=== PATIENT | female | born 1965 | race Caucasian/White ===

== ENCOUNTER 2023-07-29 09:37 | Outpatient (OUT) | payer SELFPAY ==
--- NOTE | 2023-07-29 09:51 | MR_ITS ---
[address] [address] Patient Name: JODI LOBATO MRN: [facility]:[id number] date: 1965 Sex: F Assigned Patient Location: MRI Current Patient Location: MRI Accession/Order Number: [id number] Exam Date: 07/29/2023 10:00 Report Date: 07/29/2023 21:06 At the request of: JASS HALL Procedure: MR cervical spine wo con EXAM: MR cervical spine wo con. HISTORY: Left arm weakness R29.898. Left leg parenthesis R20.2. COMPARISON: None. TECHNIQUE: Multiplanar, multisequence MR imaging of the cervical spine was performed without intravenous contrast. FINDINGS: Cervical spine is in anatomic alignment with preservation of vertebral body heights and disc spaces. Bone marrow signal is within normal limits with no acute fracture or dislocation. Partially visualized intracranial contents are unremarkable. Cervical spinal cord is unremarkable in course, caliber, contour and signal. No prevertebral edema. No paraspinal mass or fluid collection. No stenosis at the foramen magnum or C1/C2 level C2/C3: Negative. C3/C4: Negative. C4/C5: Negative. C5/C6: Disc space narrowing with small posterior disc-osteophyte complex causing mild effacement of the ventral thecal sac and mild bilateral neural foraminal stenosis C6/C7: Disc space narrowing with small posterior disc-osteophyte complex and uncovertebral arthropathy causing slight effacement of the ventral thecal sac and mild bilateral neural foraminal stenosis C7/T1: Facet arthropathy. Evaluation is mildly limited due to motion and artifact. MR/MR cervical spine wo con IMPRESSION: 1. Mild effacement of ventral thecal sac at C5/C6 and C6/C7 due to small posterior disc-osteophyte complexes. No significant central canal stenosis or cord signal abnormality. 2. Mild bilateral neural foraminal stenosis at C5/C6 and C6/C7 due to disc space narrowing, uncovertebral arthropathy and facet arthropathy. 3. No acute osseous abnormality. Electronically authenticated by: FORTINO SOARES Date: 07/29/2023 21:06
--- NOTE | 2023-07-29 09:51 | MR_ITS ---
The [address] [address] Patient Name: JODI LOBATO MRN: [facility]:[id number] date: 1965 Sex: F Assigned Patient Location: MRI Current Patient Location: MRI Accession/Order Number: [id number] Exam Date: 07/29/2023 10:00 Report Date: 07/29/2023 11:25 At the request of: JASS HALL Procedure: MR head/brain wo con EXAM: MR head/brain wo con CLINICAL INDICATION: Left Arm Weakness R29.898, Left Leg Parenthesis R20.2 COMPARISON: None TECHNIQUE/PROTOCOL: Standard noncontrast protocol brain MRI performed (Sagittal T1 with axial T1, T2, GRE, FLAIR, and diffusion-weighted imaging). FINDINGS: No restricted diffusion, extra-axial fluid collection, hydrocephalus, midline shift, or other mass effect. Intracranial flow voids are maintained. Multiple scattered small hyperintense T2/FLAIR periventricular and subcortical foci are likely on the basis of chronic microvascular angiopathic changes. Mild symmetric global volume loss with slight bilateral frontal lobe predominance. Slight commensurate ventricular system caliber prominence. Normal marrow signal. No soft tissue abnormalities. Mild scattered paranasal sinus mucosal thickening. Mastoid air cells are well-aerated. MR/MR head/brain wo con IMPRESSION: No acute intracranial process or recent infarction. Electronically authenticated by: STEPHEN TYLER Date: 07/29/2023 11:25
== END 2023-07-29 09:38 | disposition home or self-care (01) ==
LOC: MRI 09:39
PROVIDERS: PCP Family Medicine; Visit Provider Family Medicine
DX: R29.898 Other symptoms and signs involving the musculoskeletal system (principal); R20.2 Paresthesia of skin; M48.02 Spinal stenosis, cervical region
CPT/HCPCS: 70551; 72141

== ENCOUNTER 2023-08-10 12:31 | Outpatient (OUT) | payer SELFPAY ==
--- NOTE | 2023-08-10 15:30 | P.CN_ITS ---
Consult Note: HPI Data of Consult Patient: new to practice Consult date: 08/10/23 Requesting Physician: Juan Last MD Primary Care Provider: Amilcar Greenfield MD Consult Narrative Reason for consult: neck and left arm pain and weakness Narrative: 57yof who presents for evaluation. worsening pain, numbness and tingling, weakness from neck into left arm. has undergone various conservative measures, including provider directed home exercise course, decompression, stretching. cervical mri shows disc bulge with osteophyte complex with resulting effacement of thecal sac at c5-6 and c6-7. utilizes OTC meds as needed. denies adverse med side effects. cc:: CC: Juan Last MD Review of Systems ROS Status of ROS 10 or more systems reviewed and unremarkable except as noted in history and below Exam Narrative Exam Narrative: Psych-alert and oriented x 3.? Attentive and appropriate, constitutionally normal, displays normal mood and affect per situation.? There are no obvious deficits in memory, reasoning, or intellect.? Skin-no obvious rashes, bruising, or erythema noted to the patient's area of pain.? Extremities-upper extremities are warm with minimal edema and palpable pulses. Cervical- tenderness to palpation noted in the cervical spine and paraspinal musculature.? Pain is elicited with flexion, extension, and lateral rotation of the cervical spine.? Range of motion is diminished due to pain. Facet loading maneuvers are positive. Strength-unremarkable and within normal limits with the exception to the left biceps, triceps. Sensory-no notable sensory deficits in the bilateral upper extremities to touch or pinprick with the exception to decreased sensation to the left C5, 6, 7 dermatomal distribution.? Coordination remains intact.? Gait remains non-antalgic. Assessment and Plan Assessment and Plan (1) Cervical disc displacement: (2) Cervical radiculopathy: Plan 57yof who presents for evaluation. failed conservative measures, as noted. imaging reviewed, as noted. given symptoms and imaging, discussed that it would be reasonable to continue her current conservative measures and consider adding gabapentin 100mg tid. she would like to continue her conservative measures and will call if interested in starting gabapentin. we discussed that if symptoms were to worsen, could consider left C5-6, C6-7 tfesi under fluoroscopic mary ellen nce. she expressed understanding. she will follow up as needed.
== END 2023-08-10 12:32 | disposition home or self-care (01) ==
PROVIDERS: PCP Family Medicine; Visit Provider Anesthesiology
DX: M50.10 Cervical disc disorder with radiculopathy, unspecified cervical region (principal)
CPT/HCPCS: G0463

== ENCOUNTER 2023-12-16 16:35 | Outpatient (RCR) | payer SELFPAY | END 2023-12-17 13:55 | disposition home or self-care (01) | LOC: PT 16:35 | PROVIDERS: PCP Family Medicine; Visit Provider Anesthesiology | DX: M46.1 Sacroiliitis, not elsewhere classified (principal); M54.12 Radiculopathy, cervical region | CPT/HCPCS: 97161 ==

== ENCOUNTER 2024-08-15 13:25 | Outpatient (OUT) | payer SELFPAY ==
--- OUTSIDE RECORDS SUMMARY | 2024-08-15 13:45 | XMS_ITS | CCD ---
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 Name Role Phone Carl Stoddard Unavailable Unavailable Carl Stoddard Unavailable Unavailable JASS GREENFIELD Unavailable Unavailable Carl Stoddard Unavailable Unavailable Carl Stoddard Unavailable Unavailable JASS GREENFIELD Unavailable Unavailable Ahmet Nascimento Unavailable Jass Greenfield Primary Care Physician Mic Rai Attending Unavailable Mic Rai Attending Unavailable RAFAEL, DR REGAN Attending Unavailable RAFAEL, DR REGAN Admitting Unavailable RAFAEL, DR REGAN Consulting Unavailable NADERER, DR QUINCY Guerra Primary Care Unavailable RAFAEL, DR REGAN Attending Unavailable RAFAEL, DR REGAN Admitting Unavailable RAFAEL, DR REGAN Consulting Unavailable NADERER, DR QUINCY Guerra Primary Care Unavailable Zieber, DR Graff Consulting Unavailable RAFAEL, DR REGAN Primary Care Unavailable MISC, DR DONALDSON Attending Unavailable WEST, DR FORTINO Hinds Consulting Unavailable MISC, DR DONALDSON Admitting Unavailable MISC, DR DONALDSON Consulting Unavailable MARIANNE, DR KING Consulting Unavailable MARIANNE, DR KING Attending Unavailable NADEREKia, DR QUINCY Guerra Primary Care Unavailable MARIANNE, DR KING Admitting Unavailable Ziebangeli, DR Graff Consulting Unavailable MARIANNE, DR KING Consulting Unavailable MARIANNE, DR KING Attending Unavailable MARIANNE, DR KING Admitting Unavailable NADERER, DR QUINCY Guerra Primary Care Unavailable RAFAEL, DR REGAN Consulting Unavailable RAFAEL, DR REGAN Attending Unavailable RAFAEL, DR REGAN Admitting Unavailable MISC, DR DONALDSON Primary Care Unavailable RAFAEL, DR REGAN Attending Unavailable RAFAEL, DR REGAN Admitting Unavailable MISC, DR DONALDSON Primary Care Unavailable RAFAEL, DR REGAN Consulting Unavailable RAFAEL, DR REGAN Attending Unavailable HOY, DR REGAN Admitting Unavailable HOY, DR REGAN Consulting Unavailable [facility], DR DONALDSON Primary Care Unavailable HOY, DR REGAN Attending Unavailable HOY, DR REGAN Admitting Unavailable HOY, DR REGAN Primary Care Unavailable HOY, DR REGAN Consulting Unavailable NADERER, DR QUINCY Guerra Primary Care Unavailable NADERER, DR QUINCY Guerra Consulting Unavailable NADERER, DR QUINCY Guerra Attending Unavailable NADERER, DR QUINCY Guerra Referring Unavailable NADERER, DR QUINCY Guerra Admitting Unavailable HOY, DR REGAN Attending Unavailable HOY, DR REGAN Admitting Unavailable HOY, DR REGAN Consulting Unavailable NADERER, DR QUINCY Guerra Primary Care Unavailable MARILLA, DR FORTINO Hinds Consulting Unavailable NADERER, DR QUINCY Guerra Primary Care Unavailable NADERER, DR QUINCY Guerra Attending Unavailable NADERER, DR QUINCY Guerra Admitting Unavailable NADERER, DR QUINCY Guerra Consulting Unavailable HOY, DR REGAN Attending Unavailable HOY, DR REGAN Admitting Unavailable HOY, DR REGAN Consulting Unavailable NADERER, DR QUINCY Guerra Primary Care Unavailable [facility], DR Graff Consulting Unavailable Shala MORSE, Juan Chambers Attending Unavailable Allergies Allergy Classification Reported Allergen(s) Allergy Type Date of Onset Reaction(s) Facility (2 sources) Erythromycin; Translations: [erythromycin] Drug Allergy anaphylaxis, Dyspnea (finding) [facility] (2 sources) Contrast media; Translations: [Contrast Dye] Drug allergy Unknown (qualifier value) [facility] (2 sources) Erythromycin Base; Translations: [Erythromycin Base] Propensity to adverse reactions (disorder) 4 [facility] Repository Medications Current Medications Medication Drug Class(es) Dates Sig (Normalized) Sig (Original) brompheniramine maleate 0.4 mg/ml / dextromethorphan hydrobromide 2 mg/ml / pseudoephedrine hydrochloride 6 mg/ml oral solution (1 source) alpha-Adrenergic Agonist, Uncompetitive F-vmhhox-A-aspartat e Receptor Antagonist, Sigma-1 Agonist Start: 08-22-2019 Bromfed DM oral syrup 10 mL, Oral, QID for cold symptoms, 200 mL, Refill(s) 0, [facility] Start Date: 08/22/19 Status: Ordered thyroid (group home) 60 mg oral tablet (2 sources) Start: 08-22-2019 take 1 tablet by mouth once daily Braxton Thyroid 60 mg Tab 60 mg = 1 tab(s), Oral, Daily, # 30 tab(s), Refills(s) 0 Start Date: 08/22/19 Status: Ordered Braxton Thyroid A ctive Problems Active Problems Problem Classification Problem Date Documented Date Episodic/Chronic Abdominal pain (3 sources) Left lower quadrant pain; Translations: [Left lower quadrant pain] Onset: 06-04-2022 Episodic Asthma (3 sources) Mild intermittent asthma; Translations: [Mild intermittent asthma, uncomplicated] Onset: 06-03-2022 Resolved: 06-03-2022 Chronic Blindness and vision defects (4 sources) Low vision right eye category 1, low vision left eye category 1; Translations: [LOW VISN OD CAT 1 LW VISN OS CAT 1] Onset: 03-18-2022 Chronic Calculus of urinary tract (7 sources) History of calculus of kidney; Translations: [Personal history of urinary calculi] Onset: 06-04-2022 Episodic Chronic obstructive pulmonary disease and bronchiectasis (1 source) Bronchitis 06-04-2022 Episodic Essential hypertension (1 source) Hypertensive disorder 06-04-2022 Chronic Genitourinary symptoms and ill-defined conditions (9 sources) Blood in urine; Translations: [Hematuria, unspecified] Onset: 06-04-2022 Episodic Immunizations and screening for infectious disease (1 source) Encounter for screening for human papillomavirus (HPV); Translations: [ENC SCREENING HUMAN PAPILLOMAVIRUS] Onset: 08-30-2022 Episodic Menopausal disorders (4 sources) Postmenopausal bleeding; Translations: [POSTMENOPAUSAL BLEEDING] Onset: 07-15-2022 Chronic Mood disorders (2 sources) Bipolar disorder; Translations: [Depressive disorder] 06-04-2022 Chronic Nutritional deficiencies (1 source) Vitamin D deficiency, unspecified; Translations: [VITAMIN D DEFICIENCY UNSPECIFIED] Onset: 10-08-2021 Chronic Other diseases of bladder and urethra (1 source) Urethral stricture 06-04-2022 Episodic Other diseases of kidney and ureters (1 source) Acquired renal cyst without neoplastic change; Translations: [Cyst of kidney, acquired] Onset: 06-04-2022 Episodic Other diseases of kidney and ureters (1 source) Simple renal cyst 06-04-2022 Episodic Other nutritional; endocrine; and metabolic disorders (1 source) Other disorders of plasma-protein metabolism, not elsewhere classified; Translations: [OTHER D/O PLASMA-PROTEIN METAB NEC] Onset: 12-02-2021 Chronic Other screening for suspected conditions (not mental disorders or infectious disease) (9 sources) Encounter for screening for malignant neoplasm of cervix; Translations: [Other specified abnormal findings of blood chemistry] Onset: 11-28-2021 Episodic Thyroid disorders (1 source) Hypothyroidism, unspecified; Translations: [HYPOTHYROIDISM UNSPECIFIED] Onset: 12-02-2021 Chronic Thyroid disorders (1 source) Disorder of thyroid gland 08-22-2019 Episodic Unclassified (1 source) COUGH, UNSPECIFIED; Translations: [COUGH, UNSPECIFIED] Onset: 04-28-2022 Unclassified (3 sources) CONTACT W/AND (SUSP) EXPOS COVID-19; Translations: [CONTACT W/AND (SUSP) EXPOS COVID-19] Onset: 10-30-2021 Urinary tract infections (1 source) Chronic cystitis 06-04-2022 Chronic Viral infection (1 source) COVID-19; Translations: [COVID-19] Onset: 10-08-2021 Past or Other Problems Problem Classification Problem Date Documented Da te Episodic/Chronic Deficiency and other anemia (1 source) Anemia, unspecified; Translations: [ANEMIA UNSPECIFIED] Onset: 10-08-2021 Episodic Diabetes mellitus without complication (1 source) Other abnormal glucose; Translations: [OTHER ABNORMAL GLUCOSE] Onset: 10-08-2021 Episodic Malaise and fatigue (4 sources) Other fatigue; Translations: [OTHER FATIGUE] Onset: 11-27-2021 Episodic Other connective tissue disease (1 source) Myalgia, unspecified site; Translations: [MYALGIA UNSPECIFIED SITE] Onset: 11-28-2021 Episodic Other diseases of kidney and ureters (1 source) Cyst of kidney, acquired; Translations: [CYST OF KIDNEY ACQUIRED] Onset: 11-29-2021 Episodic Other lower respiratory disease (4 sources) Dyspnea, unspecified; Translations: [DYSPNEA UNSPECIFIED] Onset: 04-24-2022 Episodic Other non-traumatic joint disorders (1 source) Pain in unspecified joint; Translations: [PAIN IN UNSPECIFIED JOINT] Onset: 11-28-2021 Episodic Other upper respiratory infections (5 sources) Acute sinusitis, unspecified; Translations: [ACUTE SINUSITIS UNSPECIFIED] Onset: 09-30-2021 Episodic Unclassified (1 source) CONTACT W/AND (SUSP) EXPOS COVID-19; Translations: [CONTACT W/AND (SUSP) EXPOS COVID-19] Onset: 10-28-2021 Results Test Name Value Interpretation Reference Range Facility PAP ACOG PANEL 2: 30 to 65on 09-04-2022 . . Normal [facility] Comment on above: Result Comment: Perf ormed at: WB Performed By: #### A NAIFA #### [facility] [address] [address] [address] Philip Olivia Age Gdln ACOG Testing 30-65 Normal [facility] Comment on above: Performed By: #### A NAIFA #### [facility] [address] [address] [address] Philip Olivia DIAGNOSIS: Comment Normal [facility] Comment on above: Result Comment: NEGA TIVE FOR INTRAEPITHELIAL LESION OR MALIGNANCY. Performed at: WB Performed By: #### A NAIFA #### [facility] [address] [address] [address] Philip Olivia HPV Aptima Negative Normal Negative [facility] Comment on above: Result Comment: This nucleic acid amplification test detects fourteen high-risk HPV types (16,18,31,33,35,39,45,51,52,56,58,59,66,68) without differentiation. Performed at: =G Performed By: #### A NAIFA #### [facility] [address] [address] [address] Philip Olivia HPV Genotype Reflex Comment Normal [facility] Comment on above: Result Comment: Crit eria not met, HPV Genotype not performed. Performed at: WB Performed By: #### A NAIFA #### [facility] [address] [address] [address] Philip Olivia Methodology: Comment Normal [facility] Comment on above: Result Comment: This liquid based ThinPrep(R) pap test was screened with the use of an image guided system. Performed at: WB Performed By: #### A NAIFA #### [facility] [address] [address] [address] Philip Olivia Note: Comment Normal [facility] Comment on above: Result Comment: The Pap smear is a screening test designed to aid in the detection of premalignant and malignant conditions of the uterine cervix. It is not a diagnostic procedure and should not be used as the sole means of detecting cervical cancer. Both false-positive and false-negative reports do occur. . Performed at: WB Performed By: #### A NAIFA #### [facility] [id number] Philip Olivia Performed by: Comment Normal [facility] Comment on above: Result Comment: Davida Moore, Access Tech (ASCP) Performed at: WB Performed By: #### A NAIFA #### [facility] [address] [address] [address] Philip Olivia Specimen adequacy: Comment Normal [facility] Comment on above: Result Comment: Sati sfactory for evaluation. Endocervical and/or squamous metaplastic cells (endocervical component) are present. Performed at: WB Performed By: #### A NAIFA #### [facility] [address] [address] [address] Philip Olivia US PELVIS AND TRANSVAGon US PELVIS AND TRANSVAG EXAMINATION: US PELVIS AND TRANSVAG HISTORY: Postmenopausal bleeding COMPARISON: Ultrasound pelvis 02/25/2021 TECHNIQUE: Transabdominal and transvaginal sonographic examination. FINDINGS: UTERUS: Fluid within the cervical canal, 4 mm in thickness. Normal size, contour, and echotexture of the uterus. Uterus size: 9.4 x 3.4 x 5.0 cm ENDOMETRIUM: Normal homogeneous appearance. Endometrial thickness: 4 mm RIGHT OVARY: Not seen. LEFT OVARY: Not seen. CUL-DE-SAC: Unremarkable. No significant free fluid. BLADDER: Unremarkable. OTHER: None. IMPRESSION: 1. Small moderate free fluid within the cervical canal, likely blood products associated with patient's history. 2. No abnormal endometrial thickening, polyp, or mass to account for patient's symptoms. 3. Neither ovary could be identified. No appreciable abnormal adnexal findings. Electronically authenticated by: JUAN DAVID Tai: 2022-07-15 21:28 Normal [facility] RAD - MISCon 07-08-2022 RAD - MISC [id number] 1.00CD:127 Normal [facility] RAD - Ultrasound Reporton RAD - Ultrasound Report [id number] .00CD:127 Normal [facility] US KIDNEYSon 06-19-2022 US KIDNEYS EXAMINATION: US KIDNEYS HISTORY: H/O: urinary stone COMPARISON: No relevant comparison available. TECHNIQUE: Ultrasound examination was performed of the bladder. FINDINGS: Right Kidney: Normal in size, contour and cortical echotexture. Area of anechoic echogenicity in the lower pole measuring 2.5 x 2.6 x 3.2 cm, simple cyst. The cortex measures 1.3 cm. No solid cortical mass, hydronephrosis or obstructing nephrolithiasis Height: 4.9 cm Length: 11.4 cm Width: 5.7 cm Left Kidney: Normal in size, contour and cortical echotexture. The cortex measures 1.3 cm. No solid cortical mass, hydronephrosis or obstructing nephrolithiasis Height: 5.5 cm Length: 11.3 cm Width: 5.1 cm Moderately distended with a volume of 419 mL. No focal mass or wall thickening IMPRESSION: 3.2 cm right renal simple cyst No hydronephrosis or obstructing nephrolithiasis Electronically authenticated by: FORTINO FARNSWORTH Date: 2022-06-19 10:05 Normal [facility] XR KUB 1 VIEWon 06-19-2022 XR KUB 1 VIEW EXAMINATION: XR KUB 1 VIEW HISTORY: Blood in urine COMPARISON: No relevant comparison available. FINDINGS: KIDNEY/URETER - RIGHT: No visible renal or ureteral calcifications. KIDNEY/URETER - LEFT: No visible renal or ureteral calcifications. PELVIS: No visible ureteral calcifications. Any visible calcifications favor phleboliths. BOWEL: No abnormal dilation or deviation. BONES: Dextrocurvature with degenerative changes OTHER: Negative. No abnormal gaseous collections. IMPRESSION: No definite urinary tract calculi Electronically authenticated by: FORTINO FARNSWORTH Date: 2022-06-19 10:19 Normal [facility] UroVysion Fish and Urine Cyt o ([facility])on 06-16-2022 UVFISH & UC Diagnosis Info Invalid Interpretation Code [facility] Comment on above: Result Comment: A:Ur ine,Urine:Voided Diagnosis Summary - Diagnosis Summary - The UroVysion FISH study detected normal copy numbers for chromosomes 3, 7, 17, and 9p21. 75 cells were analyzed in this evaluation. No evidence of aneuploidy for chromosomes 3, 7, or 17 or deletion of the 9p21 locus was found in cells present in this specimen. This test does not rule out the possibility of a low grade non-invasive papillary urothelial carcinoma. These findings should be correlated with cytology and cystoscopy results.* Microscopic Notes - Microscopic Notes - Abnormal cells 9p21 deletions: Abnormal cells aneploid events: Total cells analyzed: 75 Hematuria: Gross Description Site ID:A color Yellow fixative Alcohol Received 100 mls of clear yellow fluid with the patient's name and, Urine on the vial. Electronically signed by : on: 06/16/2022 15:04:31 Performed By: #### 1 [id number] #### [facility] [address] [place] [address] Formson 06-05-2022 Forms [id number] .00CD:127 Normal [facility] Historical Records Officeon 06-05-2022 Historical Records Office [id number]# 1.00CD:127 Normal [facility] Ambulatory Visit Summaryon 0 06-04-2022 Ambulatory Visit Summary GINNY CEJA :1965 Visit Date:06/04/2022 Ambulatory Visit Instructions Your Diagnosis History of UTI History of kidney stones Hematuria History of urethral stricture Left lower quadrant abdominal pain Tests Performed Urnls Dip Stick Auto w/o Microscopy POC [id number] US Renal -- Results Pending -- XR Abdomen 1 View -- Results Pending -- Please visit your patient portal for your results or contact your primary care physician. Your Care Team Attending Physician - Mic Cheema Primary Care Physician - Hoy MD, Jass This Is Your Medications List brompheniramine/dextr omethorphan/PSE (Bromfed DM oral syrup) thyroid desiccated (Tatums Thyroid 60 mg Tab) Procedures Performed Cystourethroscopy with dilation of urethral stricture (08/30/2012), Cystourethroscopy with dilation of urethral stricture (12/21/2009), section. Discharge Vitals Heart Rate (Peripheral) 87 Blood Pressure 125/90 Height 165 cm Height 165.0 cm Weight 102.2 kg Weight 102.2 kg BMI 37.54 What to do next Scheduled Follow-Up Appointments Thursday 9:00 AM EST With: Cecelia GASTELUM, Mic Guerra Where: [facility] UroVysion Fish and Urine Cyt o ([facility])on 06-04-2022 [facility] Method of Extraction Voided Normal [facility] Comment on above: Performed By: #### 1 [id number] #### [facility] [address] [place] [address] [facility] Number of Jars 1 Invalid Interpretation Code [facility] Comment on above: Performed By: #### 1 [id number] #### [facility] [address] [place] [address] [facility] Specimen Urine Normal [facility] Comment on above: Performed By: #### 1 [id number] #### [facility] [address] [place] [address] [facility] Type of Service Technical Only Normal [facility] Comment on above: Performed By: #### 1 [id number] #### [facility] [address] [place] [address] Urology Office/Clinic Noteon 06-04-2022 Urology Office/Clinic Note Chief Complaint New Pt. HPI Staff New Pt. Pt is here due to recent LLQ pain. Pt was last seen in our office on 12/10/12 per DLS. Previous DX: chronic cystitis. Pt states she drinks a lot of water. Pt gets up 2x a night. PVR today 113 ml. Dysuria: Denies Incomplete bladder emptying: denies Hematuria: Frequency: yes pt drinks a lot of water Urgency: denies Nocturia: denies Stream: denies Leaking: Post void dripping: denies Wearing pads/ Depends: denies Urge incontinence: denies Stress incontinence: Incontinence without Sensory Awareness: denies Abdominal pain: denies Flank pain: denies Sexual complaints: denies History of Present Illness Dysuria: _denies Incomplete bladder emptying: denies Hematuria: _not definitively; has intermittently noticed blood spots in underwear but can't say for sure if it's coming from bladder, vagina, rectum or external tissues Has never seen blood in the toilet, after she wipes (after urinating or having a BM), and hasn't seen blood in urinary stream while urinating. Frequency: _urinates every couple of hours Urgency: _denies Nocturia: _2x Stream: _strong, no split or spraying stream Leaking: _only if laughing really hard Post void dripping: _ Wearing pads/ Depends: _denies Urge incontinence: _denies Stress incontinence: _only if laughing really hard Incontinence without Sensory Awareness: _ Abdominal pain: _recently had LLQ pain but resolved Flank pain: _denies Sexual complaints: _ HPI: What brings Pt in today is LLQ quad pain (mild) within the last week and lasted 48 hours. Went away on it's own. Pt denies obvious cause/triggers. Denies fever, chills, N/V. Denies constipation. BMs daily. Denies diarrhea, blood in stool or black stool. No C-scope before. ColoGuard done 1 year ago and was fine. Review of Systems PHQ Score Initial Depression Screen Score: 0 See HPI. Physical Exam Vitals & Measurements HR: 87(Peripheral) BP: 125/90 HT: 165 cm HT: 165.0 cm WT: 102.2 kg WT: 102.2 kg BMI: 37.54 General Appearance: alert , no acute distress, well nourished, well developed female. Head: normocephalic . Eyes: normal orbit and globe. Chest: no conversational dyspnea, respirations non labored . Cardiovascular: no cyanosis Abdomen: soft, non distended, no tenderness, no mass or organomegaly, no hernia, obese Female genitalia normally formed, moist, no lesions, no mass, no rash. Mucosal surface of labia are red but nothing major and Pt denies TTP. Whitish vaginal D/C. No apparent odor. Rectocele noted and stool felt in rectum. Able to self-identify pelvic floor muscles. Maybe some mild urethral mobility and bladder descent but nothing significant. Genitourinary: bladder nonpalpable, no flank tenderness. Lymph Nodes: no inguinal adenopathy Skin: warm, dry, no bruising. Psychiatric: cooperative, affect appropriate for age, normal judgement, euthymic mood. Assessment/Plan Last seen here 12/10/[address] Dumont. Prior diagnoses: chronic cystitis, nephrolithiasis, urethral stricture, UTIs. 1. Left lower quadrant abdominal pain (R10.32: Left lower quadrant pain) Had recently x 48 hours, but now resolved. Was mild. Resolved on own. Denies obvious triggers. This is the reason that Pt came in today. She will be going out of town soon. She just wanted to get checked out. May or may not be related to stone(s). Pt comments that in the past month she has been doing intermittent fasting to lose weight and she considered that this may have contributed. Denies constipation, diarrhea, N/V, blood in stool, black stool. Ordered: E&M of New Patient Moderate 45-59 Min [id number] US Renal XR Abdomen 1 View 2. Hematuria (R31.9: Hematuria, unspecified) Possible hematuria. A couple of years ago started w/ getting spots of blood in her underwear. [employer] provider seen at that time and D & C done due to uterine thickening and was OK. No definitive blood in urine, just spotting in underwear (size of pencil eraser) that occurred x 6 months and last occurred a couple months ago and at that time lasted a couple days. Never sees blood w/ wiping after urinating or having BMs and has never seen blood in the toilet or blood in urinary stream. Denies genital dryness and irritation. Went through menopause 17 years ago. UA today neg for blood. Discussed possible causes of blood in urine: UTI, stones, bladder tumor, renal tumor, external genital irritation. Denies family Hx of bladder CA. Denies Hx of smoking. 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 Work-up for hematuria discussed: CTU, Cysto, cytology/FISH. Reasoning for all these tests discussed. Pt just had a lung CT and doesn't want to undergo CT at this time. Since Hx of stones and blood could be related to stones will get KUB and renal US and go from there. Pt would like to hold off on Cysto for now. Pt does agree to have urine sent today for FISH/cytology. Advised our office would call w/ (more content not included)... Normal [facility] Comment on above: Result Comment: Elec tronically Signed By: Mic Cheema\ashlie\Date and Time Signed: 06/04/22 21:[address] CHEST WO CONon 04-25-2022 CT CHEST WO CON EXAMINATION: CT CHES T WO CON HISTORY: Dyspnea , chronic cough COMPARISON: No relevant comparison available. TECHNIQUE: Axial, Coronal, and Sagittal images were created without the administration of IV contrast material. Dose reduction techniques were achieved by using automated exposure control and/or adjustment of mA and/or kV according to patient size and/or use of iterative reconstruction technique. FINDINGS: LUNGS: No visible pulmonary disease. PLEURA: No mass, effusion, or pneumothorax. VASCULATURE: No abnormality. BOB: No mass or adenopathy. MEDIASTINUM: No mass or adenopathy. CARDIAC: No enlargement or pericardial thickening. AORTA: No aneurysm or dissection. CHEST WALL: No mass or axillary adenopathy. BONES: No bone lesion or fracture. LIMITED ABDOMEN: No suspicious findings. Limited images of the upper abdomen. OTHER: Negative. IMPRESSION: 1. No abnormal or suspicious findings to account for patient's symptoms. Electronically authenticated by: JUAN DAVID ESCALANTE Date: 2022-04-25 07:20 Normal [facility] HEMOGLOBINon 04-18-2022 Hemoglobin (Bld) [Mass/Vol] 14.4 g/dL Normal 12.0-16.0 [facility] Comment on above: Performed By: #### H GB #### [facility] [address] [address] [address] Philip Olivia US CAROTID ART BILon 022 US CAROTID ART MAIKEL EXAMINATION: US CAROTID ART MAIKEL HISTORY: Low vision bilaterally , visual disturbances COMPARISON: No relevant comparison available. TECHNIQUE: Duplex Doppler ultrasound analysis of carotid and vertebral arteries. . Bilateral carotid arterial duplex examination was performed using B-mode, color flow and spectral analysis. Carotid stenosis is reported according to validated velocity parameters, similar to NASCET criteria. FINDINGS: RIGHT CAROTID ARTERY: No visible stenosis or significant plaque. RIGHT VERTEBRAL: Antegrade flow. Subclavian: PSV: 125.8 cm/s EDV: 0.0 cm/s CCA: Prox: PSV: 75.7 cm/s EDV: 16.0 cm/s Mid: PSV: 62.0 cm/s EDV: 14.1 cm/s Distal: PSV: 64.7 cm/s EDV: 27.4 cm/s BULB: PSV: 33.4 cm/s EDV: 12.0 cm/s ICA: Prox: PSV: 57.5 cm/s EDV: 19.1 cm/s Mid: PSV: 69.8 cm/s EDV: 29.6 cm/s Distal: PSV: 78.8 cm/s EDV: 33.5 cm/s ECA: PSV: 86.6 cm/s EDV: 19.3 cm/s VERTEBRAL: PSV: 41.8 cm/s EDV: 18.2 cm/s ICA/CCA ratio: PSV: 1.0 EDV: 2.1 LEFT CAROTID ARTERY: No visible stenosis or significant plaque. LEFT VERTEBRAL: Antegrade flow. Subclavian: PSV: 138.3 cm/s EDV: 0.0 cm/s CCA: Prox: PSV: 68.8 cm/s EDV: 20.3 cm/s Mid: PSV: 76.8 cm/s EDV: 22.0 cm/s Distal: PSV: 60.7 cm/s EDV: 25.2 cm/s BULB: PSV: 52.3 cm/s EDV: 18.2 cm/s ICA: Prox: PSV: 48.2 cm/s EDV: 19.7 cm/s Mid: PSV: 57.0 cm/s EDV: 25.2 cm/s Distal: PSV: 75.3 cm/s EDV: 33.3 cm/s ECA: PSV: 78.5 cm/s EDV: 13.9 cm/s VERTEBRAL: PSV: 47.9 cm/s EDV: 19.3 cm/s ICA/CCA ratio: PSV: 1.0 EDV: 1.5 IMPRESSION: 1. 0-49% flow stenosis within the right left carotid arteries. 2. No significant atherosclerotic plaque. Spectral Doppler US Thresholds Stenosis (%) PSV (cm/sec) VICA/VCCA 0-49 <150 <2.5 50-69 150-225 2.5-4.0 >70 >225 >4.0 Electronically authenticated by: JUAN DAVID ESCALANTE Date: 2022-03-18 16:17 Normal [facility] IMMUNOGLOBULIN E, TOTALon Immunoglobulin E, Total 149 IU/mL Normal 6-495 [facility] Comment on above: Performed By: #### A NAIFA #### [facility] [address] [place] [address] Dr. Philip Olivia PROTEIN ELECTROPHERESISon Albumin [Mass/Vol] 3.7 g/dL Normal 2.9-4.4 [facility] Comment on above: Performed By: #### A NAIFA #### [facility] [address] [place] [address] Dr. Philip Olivia Albumin/Globulin [Mass ratio] 0.9 {ratio} Normal 0.7-1.7 [facility] Comment on above: Performed By: #### A NAIFA #### [facility] [address] [place] [address] Dr. Philip Olivia Wscth-2-Zlahfkiz 0.2 g/dL Normal 0.0-0.4 [facility] Comment on above: Performed By: #### A NAIFA #### [facility] [address] [address] [address] Philip Olivia Yersa-7-Wyzjlsoq 1.0 g/dL Normal 0.4-1.0 [facility] Comment on above: Performed By: #### A NAIFA #### [facility] [address] [address] [address] Philip Olivia Beta Globulin 1.4 g/dL Critically high 0.7-1.3 [facility] Comment on above: Performed By: #### A NAIFA #### [facility] [address] [place] [address] Dr. Philip Olivia Gamma Globulin 1.3 g/dL Normal 0.4-1.8 [facility] Comment on above: Performed By: #### A NAIFA #### [facility] [address] [place] [address] Dr. Philip Olivia Globulin (S) [Mass/Vol] 3.9 g/dL Normal 2.2-3.9 [facility] Comment on above: Performed By: #### A NAIFA #### [facility] [address] [place] [address] Dr. Philip Olivia M-Fabrice Not Observed Normal Not Observed [facility] Comment on above: Performed By: #### A NAIFA #### [facility] [address] [place] [address] Dr. Philip Olivia PDF . Normal [facility] Comment on above: Performed By: #### A NAIFA #### [facility] [address] [place] [address] Dr. Philip Olivia Please note: Comment Normal [facility] Comment on above: Result Comment: Prot ein electrophoresis scan will follow via computer, mail, or surgical instrument mechanic delivery. Performed By: #### A NAIFA #### [facility] [address] [place] [address] Dr. Philip Olivia Protein [Mass/Vol] 7.6 g/dL Normal 6.0-8.5 [facility] Comment on above: Performed By: #### A NAIFA #### [facility] [address] [place] [address] Dr. Philip Olivia TOREY by IFAon 11-28-2021 Antinuclear Antibodies, IFA Negative Normal [facility] Comment on above: Result Comment: Nega tive <1:80 Borderline 1:80 Positive >1:80 ICAP nomenclature: AC-0 For more information about Hep-2 cell patterns use ANApatterns.org, the official website for the International Consensus on Antinuclear Antibody (TOREY) Patterns (ICAP). Performed By: #### A NAIFA #### [facility] [address] [place] [address] Dr. Philip Olivia ANTISTREPTOLYSIN O AB (ASO)o n 11-28-2021 Antistreptolysin O Ab 48.5 IU/mL Normal 0.0-200.0 [facility] Comment on above: Performed By: #### A SOAB #### [facility] [address] [place] [address] Dr. Philip Olivia IMMUNOGLOBULINS IGA/IGM/IGG QUANTITATIVEon 11-28-2021 Immunoglobulin A, Qn, Serum 368 mg/dL Critically high 87-352 [facility] Comment on above: Performed By: #### A SOAB #### [facility] [address] [place] [address] Dr. Philip Olivia Immunoglobulin G, Qn, Serum 1199 mg/dL Normal 586-1602 [facility] Comment on above: Performed By: #### A SOAB #### [facility] [address] [place] [address] Dr. Philip Olivia Immunoglobulin M, Qn, Serum 101 mg/dL Normal 26-217 [facility] Comment on above: Performed By: #### A SOAB #### [facility] [address] [place] [address] Dr. Philip Olivia RHEUMATOID FACTORon 11-28-19 RA Latex Turbid. 10.3 IU/mL Normal <14.0 The [facility] Comment on above: Performed By: #### R F #### [facility] [address] [place] [address] Dr. Philip Olivia US SINGLE QUAD RT UPPERon US SINGLE QUAD RT UPPER EXAMINATION: US SINGLE QUAD RT UPPER HISTORY: Blood chemistry abnormal COMPARISON: No relevant comparison available. FINDINGS: The visualized pancreas is normal in appearance. No focal mass. The liver is normal in size and contour. Diffuse increase in hepatic echotexture. No focal mass. The gallbladder is normal in size. The gallbladder wall measures 1.5 mm, normal. Negative sonographic Vigil sign. No cholelithiasis or pericholecystic fluid. The common bile duct measures 5.7 mm, normal. The right kidney is normal in appearance measuring 11.3 x 5.2 x 5.1 cm. No solid cortical mass or hydronephrosis. Area of anechoic echogenicity along the lower pole measuring 2.6 x 2.8 x 2.3 cm, simple cyst. IMPRESSION: Increased hepatic echotexture suggesting steatosis 2.8 cm right renal simple cyst Electronically authenticated by: FORTINO FARNSWORTH Date: 2021-11-28 10:42 Normal [facility] ALBUMINon 11-27-2021 Albumin [Mass/Vol] 3.9 g/dL Normal 3.5-5.0 [facility] Comment on above: Performed By: #### A SOAB #### [facility] [address] [place] [address] Dr. Philip Olivia ALKALINE PHOSPHAon ALP [Catalytic activity/Vol] 163 U/L Critically high 38-126 [facility] Comment on above: Performed By: #### A SOAB #### [facility] [address] [place] [address] Dr. Philip Olivia BILIRUBIN CONJUGATED (DIRECT )on 11-27-2021 BILI, CONJUGATED 0.1 mg/dL Normal 0.0-0.3 [facility] Comment on above: Performed By: #### C VDTBH #### [facility] [address] [place] [address] Dr. Philip Olivia BILIRUBIN TOTALon 11-27-2021 Bilirubin [Mass/Vol] 0.5 mg/dL Normal 0.2-1.3 [facility] Comment on above: Performed By: #### A LP, ALB, ALT, AST, TPROT, CRP, URIC, TBIL #### [facility] [address] [place] [address] Dr. Philip Olivia CBC AUTO DIFFon 11-27-2021 BASO # 0.1 103/ul Normal 0.0-0.1 [facility] Comment on above: Performed By: #### C BC #### [facility] [address] [place] [address] Dr. Philip Olivia Basophils/100 WBC (Bld) 0.7 % Normal 0.2-2.0 [facility] Comment on above: Performed By: #### C BC #### [facility] [address] [place] [address] Dr. Philip Olivia EO # 0.4 103/ul Normal 0.0-0.7 [facility] Comment on above: Performed By: #### C BC #### [facility] [address] [place] [address] Dr. Philip Olivia Eosinophils/100 WBC (Bld) 3.7 % Normal 0.9-7.0 [facility] Comment on above: Performed By: #### C BC #### [facility] [address] [place] [address] Dr. Philip Olivia Erythrocyte distribution width (RBC) [Ratio] 12.9 % Normal 11.0-15.0 [facility] Comment on above: Performed By: #### C BC #### [facility] [address] [place] [address] Dr. Philip Olivia Hematocrit (Bld) [Volume fraction] 47.3 % Normal 36.0-48.0 [facility] Comment on above: Performed By: #### C BC #### [facility] [address] [place] [address] Dr. Philip Olivia Hemoglobin (Bld) [Mass/Vol] 15.3 g/dL Normal 12.0-16.0 [facility] Comment on above: Performed By: #### C BC #### [facility] [address] [place] [address] Dr. Philip Olivia IG # 0.09 10e3/ul Critically high 0.00-0.03 [facility] Comment on above: Performed By: #### C BC #### [facility] [address] [place] [address] Dr. Philip Olivia IG % 0.9 % Critically high 0.0-0.5 [facility] Comment on above: Performed By: #### C BC #### [facility] [address] [place] [address] Dr. Philip Olivia LYMPH # 2.3 103/ul Normal 1.2-3.8 [facility] Comment on above: Performed By: #### C BC #### [facility] [address] [place] [address] Dr. Philip Olivia Lymphocytes/100 WBC (Bld) 23.8 % Normal 20.5-60.0 [facility] Comment on above: Performed By: #### C BC #### [facility] [address] [place] [address] Dr. Philip Olivia MANUAL DIFF REQ NO Normal [facility] Comment on above: Performed By: #### C BC #### [facility] [address] [place] [address] Dr. Philip Olivia MCH (RBC) [Entitic mass] 29.9 pg Normal 26.7-34.0 [facility] Comment on above: Performed By: #### C BC #### [facility] [address] [place] [address] Dr. Philip Olivia MCHC (RBC) [Mass/Vol] 32.3 g/dL Normal 29.9-35.2 [facility] Comment on above: Performed By: #### C BC #### [facility] [address] [place] [address] Dr. Philip Olivia MCV (RBC) [Entitic vol] 92.4 fL Normal 81.0-99.0 [facility] Comment on above: Performed By: #### C BC #### [facility] [address] [place] [address] Dr. Philip Olivia MONO # 0.6 103/ul Normal 0.3-0.8 [facility] Comment on above: Performed By: #### C BC #### [facility] [address] [place] [address] Dr. Philip Olivia Monocytes/100 WBC (Bld) 5.8 % Normal 1.7-12.0 [facility] Comment on above: Performed By: #### C BC #### [facility] [address] [place] [address] Dr. Philip Olivia NEUT # 6.4 103/ul Normal 1.4-6.5 [facility] Comment on above: Performed By: #### C BC #### [facility] [address] [place] [address] Dr. Philip Olivia Neutrophils/100 WBC (Bld) 65.1 % Normal 43.0-75.0 [facility] Comment on above: Performed By: #### C BC #### [facility] [address] [address] [address] Philip Olivia Platelet mean volume (Bld) [Entitic vol] 9.6 fL Normal 9.5-13.5 [facility] Comment on above: Performed By: #### C BC #### [facility] [address] [address] [address] Philip Olivia PLT 325 103/ul Normal 150-450 [facility] Comment on above: Performed By: #### C BC #### [facility] [address] [address] [address] Philip Olivia RBC 5.12 106/ul Normal 4.20-5.40 [facility] Comment on above: Performed By: #### C BC #### [facility] [address] [place] [address] Dr. Philip Olivia WBC 9.8 103/ul Normal 4.0-11.0 [facility] Comment on above: Performed By: #### C BC #### [facility] [address] [address] [address] Philip Olivia CRPon 11-27-2021 CRP 1.4 mg/dL Critically high <=1.0 [facility] Comment on above: Performed By: #### A SOAB #### [facility] [address] [place] [address] Dr. Philip Olivia FREE T3on 11-27-2021 FREE T3 3.91 pg/mlL Normal 2.77-5.27 [facility] Comment on above: Performed By: #### C VDTBH #### [facility] [address] [place] [address] Dr. Philip Olivia FREE T4on 11-27-2021 Free T4 [Mass/Vol] 0.94 ng/dL Normal 0.78-2.19 [facility] Comment on above: Performed By: #### A NAIFA #### [facility] [address] [place] [address] Dr. Philip Olivia LIVER PROFILEon 11-27-2021 Albumin [Mass/Vol] 3.8 g/dL Normal 3.5-5.0 [facility] Comment on above: Performed By: #### C VDTBH #### [facility] [address] [place] [address] Dr. Philip Olivia Albumin/Globulin [Mass ratio] 0.8 {ratio} Normal [facility] Comment on above: Performed By: #### C VDTBH #### [facility] [address] [place] [address] Dr. Philip Olivia ALP [Catalytic activity/Vol] 154 U/L Critically high 38-126 [facility] Comment on above: Performed By: #### C VDTBH #### [facility] [address] [place] [address] Dr. Philip Olivia ALT [Catalytic activity/Vol] 52 U/L Normal 9-52 [facility] Comment on above: Performed By: #### C VDTBH #### [facility] [address] [place] [address] Dr. Philip Olivia AST [Catalytic activity/Vol] 23 U/L Normal 14-36 [facility] Comment on above: Performed By: #### C VDTBH #### [facility] [address] [place] [address] Dr. Philip Olivia Bilirubin [Mass/Vol] 0.5 mg/dL Normal 0.2-1.3 [facility] Comment on above: Performed By: #### C VDTBH #### [facility] [address] [place] [address] Dr. Philip Olivia Globulin (S) [Mass/Vol] 4.6 g/dL Normal [facility] Comment on above: Performed By: #### C VDTBH #### [facility] [address] [place] [address] Dr. Philip Olivia Protein [Mass/Vol] 8.4 g/dL Critically high 6.1-8.2 [facility] Comment on above: Performed By: #### C VDTBH #### [facility] [address] [place] [address] Dr. Philip Olivia PROF CHEM 8 (BAS METB)on Anion gap [Moles/Vol] 13.9 mmol/L Normal [facility] Comment on above: Performed By: #### C VDTBH #### [facility] [address] [place] [address] Dr. Philip Olivia Calcium [Mass/Vol] 9.5 mg/dL Normal 8.4-10.2 [facility] Comment on above: Performed By: #### C VDTBH #### [facility] [address] [place] [address] Dr. Philip Olivia Chloride [Moles/Vol] 103 mmol/L Normal 98-107 [facility] Comment on above: Performed By: #### C VDTBH #### [facility] [address] [place] [address] Dr. Philip Olivia CO2 [Moles/Vol] 27.4 mmol/L Normal 22.0-30.0 [facility] Comment on above: Performed By: #### C VDTBH #### [facility] [address] [place] [address] Dr. Philip Olivia Creatinine [Mass/Vol] 0.84 mg/dL Normal 0.52-1.04 [facility] Comment on above: Performed By: #### C VDTBH #### [facility] [address] [place] [address] Dr. Philip Olivia EGFR-AF PALAUAN >60 Normal >=60 The [facility] Comment on above: Performed By: #### C VDTBH #### [facility] [address] [place] [address] Dr. Philip Olivia EGFR-NON AF PALAUAN >60 Normal >=60 [facility] Comment on above: Performed By: #### C VDTBH #### [facility] [address] [place] [address] Dr. Philip Olivia Glucose [Mass/Vol] 93 mg/dL Normal 74-106 [facility] Comment on above: Performed By: #### C VDTBH #### [facility] [address] [place] [address] Dr. Philip Olviia Potassium [Moles/Vol] 4.3 mmol/L Normal 3.4-5.0 [facility] Comment on above: Performed By: #### C VDTBH #### [facility] [address] [place] [address] Dr. Philip Olivia Sodium [Moles/Vol] 140 mmol/L Normal 137-145 [facility] Comment on above: Performed By: #### C VDTBH #### [facility] [address] [place] [address] Dr. Philip Olivia Urea nitrogen [Mass/Vol] 14.0 mg/dL Normal 7.0-17.0 [facility] Comment on above: Performed By: #### C VDTBH #### [facility] [address] [place] [address] Dr. Philip Olivia Urea nitrogen/Creatinine [Mass ratio] 16.7 mg/mg Normal [facility] Comment on above: Performed By: #### C VDTBH #### [facility] [address] [place] [address] Dr. Philip Olivia SGOTon 11-27-2021 AST [Catalytic activity/Vol] 25 U/L Normal 14-36 [facility] Comment on above: Performed By: #### A SOAB #### [facility] [address] [place] [address] Dr. [place] Olivia SGPTon 11-27-2021 ALT [Catalytic activity/Vol] 52 U/L Normal 9-52 [facility] Comment on above: Performed By: #### A SOAB #### [facility] [address] [place] [address] Dr. Philip Olivia T PROTEIN SERUMon 11-27-2021 Protein [Mass/Vol] 8.6 g/dL Critically high 6.1-8.2 [facility] Comment on above: Performed By: #### A SOAB #### [facility] [address] [place] [address] Dr. Philip Olivia TSHon 11-27-2021 TSH 0.595 uIU/mL Normal 0.470-4.680 [facility] Comment on above: Performed By: #### C VDTBH #### [facility] [address] [place] [address] Dr. Philip Olivia TSH RANGE SEE BELOW Normal [facility] Comment on above: Result Comment: <0.3 4 UIU/ml HYPERTHYROID 0.34-5.60 UIU/ml EUTHYROID >5.60 UIU/ml HYPOTHYROID Performed By: #### C VDTBH #### [facility] [address] [place] [address] Dr. Philip Olivia URIC ACID SERUMon 11-27-2021 Urate [Mass/Vol] 5.3 mg/dL Normal 2.5-6.2 The [facility] Comment on above: Performed By: #### A SOAB #### [facility] [address] [place] [address] Dr. Philip Olivia Covid-19 PCR ([facility])on 10-06 SARS-CoV-2 (COVID-19) RNA ANTHONY+probe Ql (Unsp spec) Not detected Normal NOT DETECTED [facility] Comment on above: Result Comment: This test is not yet approved or cleared by the [place] FDA. When there are no FDA-approved or cleared tests available, and other criteria are met, FDA can make tests available under an emergency access mechanism called an Emergency Use Authorization (EUA). The EUA for this test is supported by the Triage Specialist of Health and Human Service's (HHS's) declaration that circumstances exist to justify the emergency use of in vitro diagnostics for the detection and/or diagnosis of the virus that causes COVID-19. This EUA will remain in effect (meaning this test can be used) for the duration of the COVID-19 declaration justifying emergency of IVDs, unless it is terminated or revoked by FDA (after which the test may no longer be used). When diagnostic testing is negative, the possibility of a false negative should be considered in the context of a patient's recent exposures and the presence of clinical signs and symptoms consistent with SARS-CoV-2. Performed By: #### C VDTBH #### [facility] [address] [place] [address] Dr. Philip Olivia IMMUNOGLOBULINS IGA/IGM/IGG/ IGE QUANTITAon 10-03-2021 Immunoglobulin A, Qn, Serum 430 mg/dL Critically high 87-352 [facility] Comment on above: Result Comment: Perf ormed at: CB Performed By: #### A SOAB #### [facility] [address] [place] [address] Dr. Philip Olivia Immunoglobulin E, Total 218 IU/mL Normal 6-495 [facility] Comment on above: Result Comment: Perf ormed at: BN Performed By: #### A SOAB #### [facility] [address] [address] [address] Philip Olivia Immunoglobulin G, Qn, Serum 1284 mg/dL Normal 586-1602 [facility] Comment on above: Result Comment: Perf ormed at: CB Performed By: #### A SOAB #### [facility] [address] [place] [address] Dr. Philip Olivia Immunoglobulin M, Qn, Serum 117 mg/dL Normal 26-217 [facility] Comment on above: Result Comment: Perf ormed at: CB Performed By: #### A SOAB #### [facility] [address] [place] [address] Dr. Philip Olivia [facility]-05 SARS-CoV-2 (COVID-19) RNA ANTHONY+probe Ql (Unsp spec) Detected Critically abnormal NOT DETECTED [facility] Comment on above: Result Comment: This test is not yet approved or cleared by the [place] FDA. When there are no FDA-approved or cleared tests available, and other criteria are met, FDA can make tests available under an emergency access mechanism called an Emergency Use Authorization (EUA). The EUA for this test is supported by the [place] of Health and Human Service's (HHS's) declaration that circumstances exist to justify the emergency use of in vitro diagnostics for the detection and/or diagnosis of the virus that causes COVID-19. This EUA will remain in effect (meaning this test can be used) for the duration of the COVID-19 declaration justifying emergency of IVDs, unless it is terminated or revoked by FDA (after which the test may no longer be used). Performed By: #### C VDTBH #### [facility] [address] [place] [address] Dr. Philip Olivia VIT D 1 25 DIHYDROXYon 10-02 Calcitriol(1,25 di-OH Vit D) 44.8 pg/mL Normal 19.9-79.3 [facility] Comment on above: Performed By: #### A NAIFA #### [facility] [address] [place] [address] Dr. Philip Olivia FRANKIE-GRESHAM VIRUS (EBV) AB PROFILEon 10-01-2021 EBV Ab VCA, IgG 342.0 U/mL Critically high 0.0-17.9 [facility] Comment on above: Result Comment: Nega tive <18.0 Equivocal 18.0 - 21.9 Positive >21.9 Performed By: #### C VDTB #### [facility] [address] [place] [address] Dr. Philip Olivia EBV Ab VCA, IgM <36.0 Normal 0.0-35.9 [facility] Comment on above: Result Comment: Nega tive <36.0 Equivocal 36.0 - 43.9 Positive >43.9 Performed By: #### C VDTB #### [facility] [address] [place] [address] Dr. Philip Olivia EBV Nuclear Antigen Ab, IgG <18.0 Normal 0.0-17.9 [facility] Comment on above: Result Comment: Nega tive <18.0 Equivocal 18.0 - 21.9 Positive >21.9 Performed By: #### C VDTBH #### [facility] [address] [place] [address] Dr. Philip Olivia Interpretation: Comment Normal [facility] Comment on above: Result Comment: EBV Interpretation Chart [place]: Antibody Present + Antibody Absent - Interpretation VCA-IgM VCA-IgG EBNA-IgG . No previous infection/ - - - Susceptible Primary infection (new + + - or recent) Past Infection +or- + + See comment below* + - - *Results indicate infection with EBV at some time however cannot predict the timing of the infection since antibodies to EBNA usually develop after primary infection or, alternatively, approximately 5-10% of patients with EBV never develop antibodies to EBNA. Performed By: #### C VDTBH #### [facility] [address] [place] [address] Dr. Philip Olivia INSULINon 10-01-2021 Insulin 17.5 uIU/mL Normal 2.6-24.9 [facility] Comment on above: Performed By: #### C VDTBH #### [facility] [address] [place] [address] Dr. Philip Olivia CBC AUTO DIFFon 09-30-2021 BASO # 0.0 103/ul Normal 0.0-0.1 [facility] Comment on above: Performed By: #### C VDTBH #### [facility] [address] [place] [address] Dr. Philip Olivia Basophils/100 WBC (Bld) 0.4 % Normal 0.2-2.0 [facility] Comment on above: Performed By: #### C VDTBH #### [facility] [address] [place] [address] Dr. Philip Olivia EO # 0.3 103/ul Normal 0.0-0.7 [facility] Comment on above: Performed By: #### C VDTBH #### [facility] [address] [place] [address] Dr. Philip Olivia Eosinophils/100 WBC (Bld) 3.9 % Normal 0.9-7.0 [facility] Comment on above: Performed By: #### C VDTBH #### [facility] [address] [place] [address] Dr. Philip Olivia Erythrocyte distribution width (RBC) [Ratio] 12.4 % Normal 11.0-15.0 [facility] Comment on above: Performed By: #### C VDTBH #### [facility] [address] [place] [address] Dr. Philip Olivia Hematocrit (Bld) [Volume fraction] 48.9 % Critically high 36.0-48.0 [facility] Comment on above: Performed By: #### C VDTBH #### [facility] [address] [place], [place] [id number] Dr. Philip Olivia Hemoglobin (Bld) [Mass/Vol] 15.8 g/dL Normal 12.0-16.0 [facility] Comment on above: Performed By: #### C VDTBH #### [facility] [address] [place] [address] Dr. Philip Olivia IG # 0.04 10e3/ul Critically high 0.00-0.03 [facility] Comment on above: Performed By: #### C VDTBH #### [facility] [address] [place] [address] Dr. Philip Olivia IG % 0.5 % Normal 0.0-0.5 [facility] Comment on above: Performed By: #### C VDTBH #### [facility] [address] [place] [address] Dr. Philip Olivia LYMPH # 1.9 103/ul Normal 1.2-3.8 [facility] Comment on above: Performed By: #### C VDTBH #### [facility] [address] [place] [address] Dr. Philip Olivia Lymphocytes/100 WBC (Bld) 26.0 % Normal 20.5-60.0 [facility] Comment on above: Performed By: #### C VDTBH #### [facility] [address] [place] [address] Dr. Philip Olivia MANUAL DIFF REQ NO Normal [facility] Comment on above: Performed By: #### C VDTBH #### [facility] [address] [place] [address] Dr. Philip Olivia MCH (RBC) [Entitic mass] 29.9 pg Normal 26.7-34.0 [facility] Comment on above: Performed By: #### C VDTBH #### [facility] [address] [place] [address] Dr. Philip Olivia MCHC (RBC) [Mass/Vol] 32.3 g/dL Normal 29.9-35.2 [facility] Comment on above: Performed By: #### C VDTBH #### [facility] [address] [place] [address] Dr. Philip Olivia MCV (RBC) [Entitic vol] 92.4 fL Normal 81.0-99.0 [facility] Comment on above: Performed By: #### C VDTBH #### [facility] [address] [place] [address] Dr. Philip Olivia MONO # 0.6 103/ul Normal 0.3-0.8 [facility] Comment on above: Performed By: #### C VDTBH #### [facility] [address] [place] [address] Dr. Philip Olivia Monocytes/100 WBC (Bld) 8.4 % Normal 1.7-12.0 [facility] Comment on above: Performed By: #### C VDTBH #### [facility] [address] [place] [address] Dr. Philip Olivia NEUT # 4.5 103/ul Normal 1.4-6.5 [facility] Comment on above: Performed By: #### C VDTB #### [facility] [address] [place] [address] Dr. Philip Olivia Neutrophils/100 WBC (Bld) 60.8 % Normal 43.0-75.0 [facility] Comment on above: Performed By: #### C VDTBH #### [facility] [address] [place] [address] Dr. Philip Olivia Platelet mean volume (Bld) [Entitic vol] 9.5 fL Normal 9.5-13.5 [facility] Comment on above: Performed By: #### C VDTBH #### [facility] [address] [place] [address] Dr. Philip Olivia PLT 311 103/ul Normal 150-450 [facility] Comment on above: Performed By: #### C VDTBH #### [facility] [address] [place] [address] Dr. Philip Olivia RBC 5.29 106/ul Normal 4.20-5.40 [facility] Comment on above: Performed By: #### C VDTBH #### [facility] [address] [address] [address] Philip Olivia WBC 7.4 103/ul Normal 4.0-11.0 [facility] Comment on above: Performed By: #### C VDTBH #### [facility] [address] [address] [address] Philip Olivia CULTURE SPUTUMon 09-30-2021 CULTURE SPUTUM Culture Observations : NORMAL RESPIRATORY MAJOR. Normal [facility] Comment on above: Performed By: #### H GB #### [facility] [address] [address] [address] Philip Olivia FREE THYROXINE INDEX T7on FTI 2.88 Normal [facility] Comment on above: Performed By: #### H GB #### [facility] [address] [place] [address] Dr. Philip Olivia T3U 31.0 % Normal 23.5-40.5 [facility] Comment on above: Performed By: #### H GB #### [facility] [address] [place] [address] Dr. Philip Olivia T4 [Mass/Vol] 9.30 ug/dL Normal 5.53-11.00 [facility] Comment on above: Performed By: #### H GB #### [facility] [address] [place] [address] Dr. Philip Olivia GLYCOHEMOGLOBIN A1Con 2020 ADA RECOMMENDATION ADA THERAPEUTIC TARGET 6.0 - 7.0 ACTION SUGGESTED > 7.0 Normal [facility] Comment on above: Performed By: #### A 1C #### [facility] [address] [place] [address] Dr. Philip Olivia Glucose [Mass/Vol] 114 mg/dL Normal [facility] Comment on above: Performed By: #### A 1C #### [facility] [address] [address] [address] Philip Olivia HbA1c (Bld) [Mass fraction] 5.6 % Normal <=6.0 [facility] Comment on above: Performed By: #### A 1C #### [facility] [address] [place] [address] Dr. Philip Olivia IRONon 09-30-2021 Iron [Mass/Vol] 37.0 ug/dL Normal 37.0-170.0 [facility] Comment on above: Performed By: #### C VDTBH #### [facility] [address] [address] [address] Philip Olivia LIPID PROFILEon 09-30-2021 CHOL-HDL RATIO NORM SEE BELOW Normal [facility] Comment on above: Result Comment: 3.3 - 4.4 LOW RISK 4.4 - 7.1 AVERAGE RISK 7.1 - 11.0 MODERATE RISK >11.0 HIGH RISK Performed By: #### H GB #### [facility] [address] [address] [address] Philip Olivia Cholesterol [Mass/Vol] 219 mg/dL Critically high <=200 [facility] Comment on above: Performed By: #### H GB #### [facility] [address] [address] [address] Philip Olivia Cholesterol in HDL [Mass/Vol] 44 mg/dL Normal [facility] Comment on above: Performed By: #### H GB #### [facility] [address] [address] [address] Philip Olivia Cholesterol in LDL [Mass/Vol] 149.0 mg/dL Normal [facility] Comment on above: Performed By: #### H GB #### [facility] [address] [address] [address] Philip Olivia Cholesterol.total/Cho lesterol in HDL [Mass ratio] 5.0 {ratio} Normal [facility] Comment on above: Performed By: #### H GB #### [facility] [address] [address] [address] Philip Olivia HDL NORMAL > or = 60 mg/dl - LO W CARDIOVASCULAR RISK <40 mg/dl - HIGH CARDIOVASCULAR RISK Normal [facility] Comment on above: Performed By: #### H GB #### [facility] [address] [address] [address] Philip Olivia LDL CALC NORMAL SEE BELOW Normal [facility] Comment on above: Result Comment: <100 mg/dl OPTIMAL 100 - 129 mg/dl NEAR OR ABOVE OPTIMAL 130 - 159 mg/dl BORDERLINE HIGH 160 - 189 mg/dl HIGH >190 mg/dl VERY HIGH Performed By: #### H GB #### [facility] [address] [place] [address] Dr. Philip Olivia Triglyceride [Mass/Vol] 130 mg/dL Normal <=150 [facility] Comment on above: Performed By: #### H GB #### [facility] [address] [place] [address] Dr. Philip Olivia VLDL CALC 26.0 mg/dL Normal [facility] Comment on above: Performed By: #### H GB #### [facility] [address] [place] [address] Dr. Philip Olivia MONOon 09-30-2021 Monocytes (Bld) [#/Vol] Negative Normal NEGATIVE [facility] Comment on above: Performed By: #### A ROSEANNE #### [facility] [address] [place] [address] Dr. Philip Olivia PROF 14(COMP METB)on 021 Albumin [Mass/Vol] 3.7 g/dL Normal 3.5-5.0 [facility] Comment on above: Performed By: #### H GB #### [facility] [address] [place] [address] Dr. Philip Olivia Albumin/Globulin [Mass ratio] 0.8 {ratio} Normal [facility] Comment on above: Performed By: #### H GB #### [facility] [address] [place] [address] Dr. Philip Olivia ALP [Catalytic activity/Vol] 146 U/L Critically high 38-126 [facility] Comment on above: Performed By: #### H GB #### [facility] [address] [place] [address] Dr. Philip Olivia ALT [Catalytic activity/Vol] 33 U/L Normal 9-52 [facility] Comment on above: Performed By: #### H GB #### [facility] [address] [place] [address] Dr. Philip Olivia Anion gap [Moles/Vol] 16.8 mmol/L Normal [facility] Comment on above: Performed By: #### H GB #### [facility] [address] [place] [address] Dr. Philip Olivia AST [Catalytic activity/Vol] 15 U/L Normal 14-36 [facility] Comment on above: Performed By: #### H GB #### [facility] [address] [place] [address] Dr. Philip Olivia Bilirubin [Mass/Vol] 0.4 mg/dL Normal 0.2-1.3 [facility] Comment on above: Performed By: #### H GB #### [facility] [address] [place] [address] Dr. Philip Olivia Calcium [Mass/Vol] 9.3 mg/dL Normal 8.4-10.2 [facility] Comment on above: Performed By: #### H GB #### [facility] [address] [place] [address] Dr. Philip Olivia Chloride [Moles/Vol] 101 mmol/L Normal 98-107 [facility] Comment on above: Performed By: #### H GB #### [facility] [address] [place] [address] Dr. Philip Olivia CO2 [Moles/Vol] 24.1 mmol/L Normal 22.0-30.0 [facility] Comment on above: Performed By: #### H GB #### [facility] [address] [place] [address] Dr. Philip Olivia Creatinine [Mass/Vol] 0.91 mg/dL Normal 0.52-1.04 [facility] Comment on above: Performed By: #### H GB #### [facility] [address] [place] [address] Dr. Philip Olivia EGFR-AF PALAUAN >60 Normal >=60 [facility] Comment on above: Performed By: #### H GB #### [facility] [address] [place] [address] Dr. Philip Olivia EGFR-NON AF PALAUAN >60 Normal >=60 [facility] Comment on above: Performed By: #### H GB #### [facility] [address] [address] [address] Philip Olivia Globulin (S) [Mass/Vol] 4.8 g/dL Normal [facility] Comment on above: Performed By: #### H GB #### [facility] [address] [address] [address] Philip Olivia Glucose [Mass/Vol] 95 mg/dL Normal 74-106 [facility] Comment on above: Performed By: #### H GB #### [facility] [address] [address] [address] Philip Olivia Potassium [Moles/Vol] 3.9 mmol/L Normal 3.4-5.0 [facility] Comment on above: Performed By: #### H GB #### [facility] [address] [place] [address] Dr. Philip Olivia Protein [Mass/Vol] 8.5 g/dL Critically high 6.1-8.2 [facility] Comment on above: Performed By: #### H GB #### [facility] [address] [address] [address] Philip Olivia Sodium [Moles/Vol] 138 mmol/L Normal 137-145 [facility] Comment on above: Performed By: #### H GB #### [facility] [address] [place] [address] Dr. Philip Olivia Urea nitrogen [Mass/Vol] 13.0 mg/dL Normal 7.0-17.0 [facility] Comment on above: Performed By: #### H GB #### [facility] [address] [address] [address] Philip Olivia Urea nitrogen/Creatinine [Mass ratio] 14.3 mg/mg Normal [facility] Comment on above: Performed By: #### H GB #### [facility] [address] [address] [address] Philip Olivia SPUTUM GRAM STAINon 09-30-20 COMMENTS >25 epithelial cells noted. May impact validity. Repeat testing if indicated Normal [facility] Comment on above: Performed By: #### C VDTBH #### [facility] [address] [address] [address] Philip Olivia DIPHTHEROIDS Normal [facility] Comment on above: Performed By: #### C VDTBH #### [facility] [address] [address] [address] Philip Olivia EPITHELIALS >25 Normal [facility] Comment on above: Performed By: #### C VDTBH #### [facility] [address] [address] [address] Philip Olivia FUNGAL ELEMENTS Normal [facility] Comment on above: Performed By: #### C VDTBH #### [facility] [address] [address] [address] Philip Olivia GRAM NEG BACILLI RARE Normal [facility] Comment on above: Performed By: #### C VDTBH #### [facility] [address] [address] [address] Philip WU NEG DIPPLOCOCCI Normal [facility] Comment on above: Performed By: #### C VDTBH #### [facility] [address] [address] [address] Philip Olivia GRAM POS BACILLI MODERATE Normal [facility] Comment on above: Performed By: #### C VDTBH #### [facility] [address] [address] [address] Philip Olivia GRAM POSITIVE COCCI MODERATE Normal [facility] Comment on above: Performed By: #### C VDTBH #### [facility] [address] [address] [address] Philip Olivia WBC (Bld) [#/Vol] 10*3/uL Normal [facility] Comment on above: Performed By: #### C VDTBH #### [facility] [address] [address] [address] Philip Olivia TSHon 09-30-2021 TSH 0.953 uIU/mL Normal 0.470-4.680 [facility] Comment on above: Performed By: #### H GB #### [facility] [address] [place] [address] Dr. Philip Olivia TSH RANGE SEE BELOW Normal [facility] Comment on above: Result Comment: <0.3 4 UIU/ml HYPERTHYROID 0.34-5.60 UIU/ml EUTHYROID >5.60 UIU/ml HYPOTHYROID Performed By: #### H GB #### [facility] [address] [place] [address] Dr. Philip Olivia Covid-19 PCR ([facility])on 09-05 SARS-CoV-2 (COVID-19) RNA ANTHONY+probe Ql (Unsp spec) Not detected Normal NOT DETECTED [facility] Comment on above: Result Comment: This test is not yet approved or cleared by the [place] FDA. When there are no FDA-approved or cleared tests available, and other criteria are met, FDA can make tests available under an emergency access mechanism called an Emergency Use Authorization (EUA). The EUA for this test is supported by the [place] of Health and Human Service's (HHS's) declaration that circumstances exist to justify the emergency use of in vitro diagnostics for the detection and/or diagnosis of the virus that causes COVID-19. This EUA will remain in effect (meaning this test can be used) for the duration of the COVID-19 declaration justifying emergency of IVDs, unless it is terminated or revoked by FDA (after which the test may no longer be used). When diagnostic testing is negative, the possibility of a false negative should be considered in the context of a patient's recent exposures and the presence of clinical signs and symptoms consistent with SARS-CoV-2. Performed By: #### C VDTBH #### [facility] [address] [place] [address] Dr. Philip Olivia INFLUENZA A AND B AGon 09-25 INFLUANEGH SEE BELOW Normal [facility] Comment on above: Result Comment: Nega tive for Flu A protein angiten. Infection due to Flu A cannot be ruled out. Flu A angiten in the sample may be below the detection limit of the test. Performed By: #### A NAIFA #### [facility] [address] [place] [address] Dr. Philip Olivia INFLUBNEGH SEE BELOW Normal [facility] Comment on above: Result Comment: Nega tive for Flu B protein antigen. Infection due to Flu B cannot be ruled out. Flu B antigen in the sample may be below the detection limit of the test. Performed By: #### A NAIFA #### [facility] [address] [place] [address] Dr. Philip Olivia INFLUENZA A AG Negative Normal NEGATIVE SEE COMMENT [facility] Comment on above: Performed By: #### A NAIFA #### [facility] [address] [place] [address] Dr. Philip Olivia INFLUENZA B AG Negative Normal NEGATIVE SEE COMMENT [facility] Comment on above: Performed By: #### A NAIFA #### [facility] [address] [place] [address] Dr. Philip Olivia INTERNAL CONTROLS Within Normal Limits Normal Wi thin Normal Limits [facility] Comment on above: Performed By: #### A NAIFA #### [facility] [address] [place] [address] Dr. Philip Olivia Coding Summaryon 08-07-2017 Coding Summary CODING DATE: 08/07/2017 [facility] STATUS: Home PAYOR: Self Pay APC DESCRIPTION 5522 Level 2 Imaging without Contrast ADMIT DX: REASON FOR VISIT DX: S39.012A Strain of muscle, fascia and tendon of lower back, initial encounter FINAL DX: PRINCIPAL: S39.012A Strain of muscle, fascia and tendon of lower back, initial encounter SECONDARY: M47.817 Spondylosis without myelopathy or radiculopathy, lumbosacral region PYMT PROC APC STAT DESCRIPTION DOCTOR NAME DATE NOTE: The code number assigned matches the documented diagnosis and / or procedure in the patient's chart. However, the narrative phrase printed from the coding software may appear abbreviated, or result in slightly different terminology. Revised Coded By: Dorie Austin Revised Date Saved: 05/08/2017 11:32 am Normal [facility] Coding Summaryon 05-08-2017 Coding Summary CODING DATE: 05/08/2017 [facility] STATUS: Home PAYOR: Self Pay ADMIT DX: REASON FOR VISIT DX: S39.012A Strain of muscle, fascia and tendon of lower back, initial encounter FINAL DX: PRINCIPAL: S39.012A Strain of muscle, fascia and tendon of lower back, initial encounter SECONDARY: M47.817 Spondylosis without myelopathy or radiculopathy, lumbosacral region PROCEDURES DOCTOR NAME DATE NOTE: The code number assigned matches the documented diagnosis and / or procedure in the patient's chart. However, the narrative phrase printed from the coding software may appear abbreviated, or result in slightly different terminology. Coded By: Dorie Austin Date Saved: 05/08/2017 11:32 am [facility] XR Spine Lumbosacral Minimum 4 Viewson 05-07-2017 XR Spine Lumbosacral Minimum 4 Views SPINE LUMBOSACRAL MINIMUM FOUR VIEWCLINICAL DATA: Fell today, impact injury to low back, pain.Five views of the lumbar spine were obtained to include AP, lateral, bothoblique and directed lateral lumbosacral views. Vertebral body heights aregrossly well maintained. There is a widened appearance of the disc space atL4-L5 which is of uncertain etiology and significance. Possibility ofligament and/or tendon injury having caused widening of the disc space is notexcluded. Follow-up CT or MRI study of the lumbar spine may be consideredfor further evaluation.There is moderate disc space narrowing at L3-L4 with moderate to marked discspace narrowing at L5-S1. There is mild disc space narrowing at T12-L1 andL1-L2. There is slight convexity of the lumbar spine to the right. Pediclesare intact. There are moderate degenerative changes of the facet joints atL5-S1 with mild to moderate degenerative changes of facet joints suggested atL4-L5 bilaterally, mild changes otherwise noted. There are calcificdensities overlying the pelvis compatible with phleboliths.IMPRESSIO N:1. LUMBAR SPINE STUDY DEMONSTRATES DEGENERATIVE CHANGES AND DISC SPACENARROWING DESCRIBED, SLIGHT CONVEXITY TO THE RIGHT.2. WIDENED APPEARANCE OF THE DISC SPACE AT L4-L5 OF UNCERTAIN ETIOLOGY ANDSIGNIFICANCE. THE POSSIBILITY OF LIGAMENT AND/OR TENDON INJURY AT THIS LEVELCANNOT BE EXCLUDED. FOLLOW-UP CT OR MRI STUDY OF THE LUMBAR SPINE MAY BECONSIDERED FOR FURTHER EVALUATION. DEGENERATIVE CHANGES OTHERWISE NOTEDBILATERALLY.ISABEL He #: [id number]: 05/08/2017T: 05/08/2017 Final Dictated by: Santo Velazquez MD SDictated DT/TM: 05/08/17 5:16Signed (Electronic Signature): Santo Velazquez MD 05/08/17 12:33 pTechnologist: [facility] Vital Signs Date Time Vital Sign Value Performing Clinician Facility 06-04-2022 10:50-0400 Blood Pressure Location [facility] 06-04-2022 10:50-0400 Diastolic blood pressure 90 mm[Hg] Mic Rai [facility] 06-04-2022 10:50-0400 Heart rate 87 /min Mic Rodriguezs [facility] 06-04-2022 10:50-0400 Systolic blood pressure 125 mm[Hg] Mic Rai [facility] 06-03-2022 10:15-0400 Body height 165.1 cm Ahmet Nascimento [facility] 06-03-2022 10:15-0400 Body mass index (BMI) [Ratio] 37.11 kg/m2 Ahmet Nascimento Other [facility] 06-03-2022 10:15-0400 Body temperature 97.3 [degF] Ahmet Nascimento Other [facility] 06-03-2022 10:15-0400 Body weight 101.15 kg Ahmet Nascimento Other [facility] Other 06-03-2022 10:15-0400 Diastolic blood pressure 90 mm[Hg] Ahmet Nascimento Other [facility] 06-03-2022 10:15-0400 Respiratory rate 20 /min Ahmet Nascimento Other [facility] Other 06-03-2022 10:15-0400 SaO2% (BldA) [Mass fraction] 99 % Ahmet Leivasalvatore Other [facility] Other 06-03-2022 10:15-0400 Systolic blood pressure 150 mm[Hg] Ahmet Azam Other [facility] Other Encounters Encounter Date Encounter Type Care Provider Facility Start: 08-10-2023 End: 08-11-2023 ambulatory Juan Last MD Facility[facility] Start: 09-03-2022 ambulatory Mic Quirozi lity:JOSIE Jenkins Start: 08-26-2022 End: 08-26-[address] CHRISTINE LOPES Facility:[facility] Start: 07-15-2022 End: 07-16-[address] CHRISTINE LOPES Facility:[facility] Start: 06-19-2022 End: 06-20-[address] JASS GREENFIELD Facility:[facility] Start: 06-04-2022 End: 06-05-2022 ambulatory Mic Rai Facility:[facility] Start: 06-04-2022 End: 06-04-2022 Patient encounter procedure Mic Rai [facility] Start: 06-03-2022 End: 06-03-2022 ambulatory Ahmet Nascimento Other [facility] Start: 06-03-2022 Office outpatient ne w 45 minutes Ahmet Nascimento [facility] Start: 04-24-2022 End: 04-25-[address] JASS GREENFIELD Facility:[facility] Start: 04-18-2022 End: 04-19-[address] JASS GREENFIELD Facility:[facility] Start: 03-18-2022 End: 03-19-[address] JASS GREENFIELD Facility:[facility] Start: 12-02-2021 Encounter for genera l adult medical examination without abnormal findings DR QUINCY OLMOS [facility] Start: 11-28-2021 End: 11-29-[address] FORTINO FARNSWORTH Facility:[facility] Start: 11-27-2021 End: 11-28-[address] JASS GREENFIELD Facility:[facility] Start: 11-27-2021 End: 11-27-[address] QUINCY OLMOS Facility:[facility] Start: 11-27-2021 End: 11-27-2021 Encounter for general adult medical examination without abnormal findings DR QUINCY OLMOS Facility:[facility] Start: 10-28-2021 End: 10-29-[address] JASS GREENFIELD Facility:[facility] Start: 10-02-2021 End: 10-02-[address] JASS GREENFIELD Facility:[facility] Start: 09-30-2021 End: 10-01-[address] JASS GREENFIELD Facility:[facility] Start: 09-25-2021 End: 09-25-[address] JASS GREENFIELD Facility:[facility] Start: 05-08-2017 End: 05-08-2017 Ambulatory Carl Stoddard Facility:[facility] Start: 05-07-[address] [facility] Facilit y:[facility] Procedures Date Procedure Procedure Detail Performing Clinician Start: 08-30-2012 Cystourethroscopy wi th dilation of urethral stricture Mic Rai Start: 12-21-2009 Cystourethroscopy wi th dilation of urethral stricture Mic Rai section Mic pepper Comment on above: x3 Immunizations Immunization Date Immunization Notes Care Provider Maria De Jesus gutierrez NEGATED: Highlighted row has not occurred!06-04-2022 SARS-CoV-2 mRNA (tozinameran 5y-11y) vaccine Mic Rai [facility] Payers Date Payer Category Payer Self-pay 2017 Unknown [id number] 2017 Unknown 1964 Unknown [id number] 2.16.8 [id number] 1964 Unknown [id number] 2.16.8 [id number] 1964 Unknown [id number] 2.16.84 0.1.178847.3.579.2.593 1964 Unknown [id number] 2.16.84 0.1.692042.3.579.2.593 1964 Unknown [id number] 2.16.84 0.1.887448.3.579.2.593 1964 Unknown [id number] 2.16.84 0.1.346410.3.579.2.593 1964 Unknown [id number] 2.16.84 0.1.155977.3.579.2.593 1964 Unknown [id number] 2.16.84 0.1.661646.3.579.2.593 1964 Unknown [id number] 2.16.84 0.1.661875.3.579.2.593 1964 Unknown [id number] 2.16.84 0.1.149437.3.579.2.593 1964 Unknown [id number] 2.16.84 0.1.720670.3.579.2.593 1964 Unknown [id number] 2.16.84 0.1.470253.3.579.2.593 1964 Unknown [id number] 2.16.84 0.1.771270.3.579.2.593 1964 Unknown [id number] 2.16.84 0.1.583244.3.579.2.593 1964 Unknown [id number] .16.84 0.1.962436.3.579.2.593 1964 Unknown [id number] 2.16. 840.1.341784.3.579.2.196 1959 Self-pay [id number] Self-pay [id number] Social History Date Type Detail Facility Sex Assigned At [facility] Other Start: 06-04-2022 Tobacco smoking status Never s moked tobacco (finding) [facility] Tobacco smoking status Never [facility] Functional Status Date Assessment Result Facility 06-04-2022 Functional Status N/A [facility] Evaluation note 06-03-2022 Note Date & Type Note Facility 06-03-2022 Evaluation note Encounter Date Diagnosis Assessment Notes May, Mild intermittent reactive airway disease without complication (ICD-10 - J45.20) Discussed the diagnosis of reactive airway disease, likely triggered by severe viral infection such as initial COVID infection leading to airway hyperreactivity , which can be triggered easily by recurrent viral infections or other irritants. She does not report significant symptoms of GERD or obstructive sleep apnea but those could be contributing factors as well. Her current evaluation showed completely normal CT of the chest as well as PFTs. If she has recurrent cycle of reactive airways following viral infection or other triggers inhaled steroids would be recommended until her symptoms are controlled in addition to as needed [facility] Other Evaluation + Plan note Note Date & Type Note Facility Evaluation + Plan note Future Appointments Appointment Date:09/03/2022 09:00:00 AM Scheduled Provider:Mic Cheema Location:[facility] Appointment Type:URO Office Visit Diagnostic Tests [facility] ([facility]) 06/04/22 [facility] History general Narrative - Reported Note Date & Type Note Facility History general Narrative - Reported Type Medical History high blood pressure Medical History COVID 19 x 4 times Surgical History 3 c-sections Hospitalization History kidney stones [facility] Other Hospital course Narrative Note Date & Type Note Facility Hospital course Narrative No data available for this section [facility] Hospital Discharge instructions Note Date & Type Note Facility Hospital Discharge instructions No data available for this section [facility] Progress note Note Date & Type Note Facility Progress note No data available for this section [facility] Reason for visit Narrative Note Date & Type Note Facility Reason for visit Narrative Ref by Dr. Giovany bueno for Post COVID -19 Condition [facility] Other Summary Purpose Family History No Family History Records FoundNo Family History Records FoundNo Family History Records FoundNo Family History Records Found Advance Directives No Advanced Directives Records FoundNo Advanced Directives Records FoundNo Advanced Directives Records FoundNo Advanced Directives Records Found Additional Source Comments INFORMATION SOURCE (unrecogn ized section and content) DATE CREATED AUTHOR 03/30/2018 [facility] DATE CREATED AUTHOR AUTHOR'S ORGANIZ ATION 07/09/2022 [facility] DATE CREATED AUTHOR AUTHOR'S ORGANIZ ATION 09/05/2022 [facility] DATE CREATED AUTHOR AUTHOR'S ORGANIZ ATION 08/16/2023 [facility] Care Team (unrecognized sect ion and content) Personnel Name: Jass Greenfield MD Address: [address] [place] [address] FOR RECORDS PERTAINING TO PATIENTS WHO ARE OR HAVE BEEN ENROLLED IN A CHEMICAL DEPENDENCY/SUBSTANCEABUSE PROGRAM, SOME INFORMATION MAY BE OMITTED. This clinical summary was aggregated from multiple sources. Caution should be exercised in using it in the provision of clinical care. This summary normalizes information from multiple sources, and as a consequence, information in this document may materially change the coding, format and clinical context of patient data. In addition, data may be omitted in some cases. CLINICAL DECISIONS SHOULD BE BASED ON THE PRIMARY CLINICAL RECORDS. [facility]. provides no warranty or guarantee of the accuracy or completeness of information in this document.
--- NOTE | 2024-08-15 15:05 | P.CN_ITS ---
Consult Note: HPI Data of Consult Patient: known to practice within the last 3 years Consult date: 08/15/24 Requesting Physician: Juan Last MD Primary Care Provider: Amilcar Greenfield MD Consult Narrative Reason for consult: low back pain Narrative: 58yof who presents for assessment. longstanding low back pain, recently was dealing with flare of pain radiating into left lower extremity. imaging significant for multilevel stenosis, worst at l3-4, as well as multilevel facet arthropathy. continues to engage in series of provider directed home exercises. uses diclofenac as needed. cc:: CC: Juan Last MD Review of Systems ROS Status of ROS 10 or more systems reviewed and unremark able except as noted in history and below Exam Narrative Exam Narrative: Psych-alert and oriented x 3. Attentive and appropriate, constitutionally normal, displays normal mood and affect per situation.? There are no obvious deficits in memory, reasoning, or intellect.? Skin-no obvious rashes, bruising, erythema noted to the patient's area of pain. Extremities- extremities are warm with minimal edema and palpable pulses. Lumbar-no significant tenderness to palpation noted in the lumbar spine and paraspinal musculature.? Pain is elicited with extension, and lateral rotation of the lumbar spine. Range of motion is slightly diminished with these motions due to pain. Facet loading maneuvers are positive bilaterally and do appear to be concordant with the patient's normal complaints of pain.? Coordination remains intact.? Gait remains non-antalgic. Assessment and Plan Assessment and Plan (1) Lumbar stenosis with neurogenic claudication: (2) Lumbar spondylosis: Plan 58yof who presents for assessment. failed conservative measures, as noted. imaging reviewed, as noted. given symptoms and imaging, discussed that she would potentially benefit from bilateral l4-5, l5-s1 mbb with intention of proceeding to rfa. she expressed understanding. meds reviewed, no changes. follow up as needed.
== END 2024-08-15 13:26 | disposition home or self-care (01) ==
LOC: PM 13:25
PROVIDERS: PCP Family Medicine; Visit Provider Anesthesiology
DX: M48.062 Spinal stenosis, lumbar region with neurogenic claudication (principal); M47.816 Spondylosis without myelopathy or radiculopathy, lumbar region
CPT/HCPCS: G0463

== ENCOUNTER 2024-09-05 20:40 | Outpatient (REF) | payer SELFPAY ==
--- OUTSIDE RECORDS SUMMARY | 2024-09-05 20:45 | XMS_ITS | CCD ---
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 Name Role Phone Carl Stoddard Unavailable Unavailable Richi Carl M Unavailable Unavailable JASS GREENFIELD Unavailable Unavailable Richi Carl Eladio Unavailable Unavailable Richi Carl M Unavailable Unavailable JASS GREENFIELD Unavailable Unavailable Ahmet Nascimento Unavailable Jass Greenfield Primary Care Physician Mic Rai Attending Unavailable Mic Rai Attending Unavailable GIN, DR REGAN Attending Unavailable GIN, DR REGAN Admitting Unavailable GIN, DR REGAN Consulting Unavailable NADERER, DR QUINCY Guerra Primary Care Unavailable GIN, DR REGAN Attending Unavailable GIN, DR REGAN Admitting Unavailable GIN, DR REGAN Consulting Unavailable NADHEBERT, DR QUINCY Guerra Primary Care Unavailable Miguelebangeli, DR Graff Consulting Unavailable GIN, DR ERGAN Primary Care Unavailable MISC, DR DONALDSON Attending Unavailable WEST, DR FORTINO Hinds Consulting Unavailable MISC, DR DONALDSON Admitting Unavailable MISC, DR DONALDSON Consulting Unavailable MARIANNE, DR KING Consulting Unavailable MARIANNE, DR KING Attending Unavailable NADHEBERT, DR QUINCY Guerra Primary Care Unavailable MARIANNE, DR KING Admitting Unavailable Zieber, DR Graff Consulting Unavailable MARIANNE, DR KING Consulting Unavailable MARIANNE, DR KING Attending Unavailable MARIANNE, DR KING Admitting Unavailable NADHEBERT, DR QUINCY Guerra Primary Care Unavailable GIN, DR REGAN Consulting Unavailable GIN, DR REGAN Attending Unavailable GIN, DR RGEAN Admitting Unavailable MISC, DR DONALDSON Primary Care Unavailable GIN, DR REGAN Attending Unavailable GIN, DR REGAN Admitting Unavailable MISC, DR DONALDSON Primary Care Unavailable GIN, DR REGAN Consulting Unavailable GIN, DR REGAN Attending Unavailable GIN, DR REGAN Admitting Unavailable GIN, DR REGAN Consulting Unavailable MISC, DR DONALDSON Primary Care Unavailable KALPANAY, DR REGAN Attending Unavailable HOY, DR REGAN Admitting Unavailable HOY, DR REGAN Primary Care Unavailable HOY, DR REGAN Consulting Unavailable NADERER, DR QUINCY Guerra Primary Care Unavailable NADERER, DR QUINCY Guerra Consulting Unavailable NADERER, DR QUINCY Guerra Attending Unavailable NADERER, DR QUINCY Guerra Referring Unavailable NADERER, DR QUINCY Guerra Admitting Unavailable HODov, DR REGAN Attending Unavailable HOY, DR REGAN Admitting Unavailable HOY, DR REGAN Consulting Unavailable NADERER, DR QUINCY Guerra Primary Care Unavailable INDUSTRY, DR FORTINO Hinds Consulting Unavailable NADERER, DR QUINCY Guerra Primary Care Unavailable NADERER, DR QUINCY Guerra Attending Unavailable NADERER, DR QUINCY Guerra Admitting Unavailable NADERER, DR QUINCY Guerra Consulting Unavailable HOY, DR REGAN Attending Unavailable HOY, DR REGAN Admitting Unavailable HOY, DR REGAN Consulting Unavailable NADERER, DR QUINCY Guerra Primary Care Unavailable Zieber, DR Graff Consulting Unavailable Shala MORSE, Juan Chambers Attending Unavailable Gin MORSE, Jass Hendricks Primary Care Provider [phone] Allergies Allergy Classification Reported Allergen(s) Allergy Type Date of Onset Reaction(s) Facility (2 sources) Erythromycin; Translations: [erythromycin] Drug Allergy anaphylaxis, Dyspnea (finding) [facility] (2 sources) Contrast media; Translations: [Contrast Dye] Drug allergy Unknown (qualifier value) [facility] (2 sources) Erythromycin Base; Translations: [Erythromycin Base] Propensity to adverse reactions (disorder) 4 [facility] Medications Current Medications Medication Drug Class(es) Dates Sig (Normalized) Sig (Original) brompheniramine maleate 0.4 mg/ml / dextromethorphan hydrobromide 2 mg/ml / pseudoephedrine hydrochloride 6 mg/ml oral solution (1 source) alpha-Adrenergic Agonist, Uncompetitive E-mxxtbr-W-aspartat e Receptor Antagonist, Sigma-1 Agonist Start: 08-22-2019 Bromfed DM oral syrup 10 mL, Oral, QID for cold symptoms, 200 mL, Refill(s) 0, [facility] Start Date: 08/22/19 Status: Ordered Naltrexone HCl, Pain, 4.5 MG capsule (2 sources) Start: 08-12-2024 take 1 capsule by mouth once daily Naltrexone HCl, Pain, 4.5 MG capsule Take 4.5 mg by mouth Daily 08/12/2024 Active thyroid (alf) 60 mg oral tablet (4 sources) Start: 08-22-2019 take 1 tablet by mouth once daily [place] Thyroid 60 mg Tab 60 mg = 1 tab(s), Oral, Daily, # 30 tab(s), Refills(s) 0 Start Date: 08/22/19 Status: Ordered [place] Thyroid A ctive Problems Active Problems Problem [...] conditions (not mental disorders or infectious disease) (11 sources) Encounter for screening for malignant neoplasm of cervix; Translations: [Other specified abnormal findings of blood chemistry] Onset: 11-28-2021 Episodic Residual codes; unclassified (2 sources) Postmenopausal state; Translations: [Asymptomatic menopausal state] 09-05-2024 Episodic Thyroid disorders (1 source) Hypothyroidism, unspecified; [...] 30 to 65on 09-04-2022 . . Normal [facility] Comment on above: Result Comment: Perf ormed at: WB Performed By: #### A NAIFA #### [facility] [address] [address] [address] Philip Olivia Age Gdln ACOG Testing 30-65 Normal [facility] Comment on above: Performed By: #### A NAIFA #### [facility] [address] [address] [address] Philip Olivia DIAGNOSIS: Comment Normal [facility] Comment on above: Result Comment: NEGA TIVE FOR INTRAEPITHELIAL LESION OR MALIGNANCY. Performed at: WB Performed By: #### A NAIFA #### [facility] [address] [address] [address] Philip Olivia HPV Aptima Negative Normal Negative [facility] Comment on above: Result Comment: This nucleic acid amplification test detects fourteen high-risk HPV types (16,18,31,33,35,39,45,51,52,56,58,59,66,68) without differentiation. Performed at: =G Performed By: #### A NAIFA #### [facility] [address] [address] [address] Philip Olivia HPV Genotype Reflex Comment Normal [facility] Comment on above: Result Comment: Crit eria not met, HPV Genotype not performed. Performed at: WB Performed By: #### A NAIFA #### [facility] [address] [address] [address] Philip Olivia Methodology: Comment Normal [facility] Comment on above: Result Comment: This liquid based ThinPrep(R) pap test was screened with the use of an image guided system. Performed at: WB Performed By: #### A NAIFA #### [facility] [address] [address] [address] Philip Olivia Note: Comment Normal [facility] Comment on above: Result Comment: The Pap smear is a screening test designed to aid in the detection of premalignant and malignant conditions of the uterine cervix. It is not a diagnostic procedure and should not be used as the sole means of detecting cervical cancer. Both false-positive and false-negative reports do occur. . Performed at: WB Performed By: #### A NAIFA #### [facility] [address] [place] [address] Dr. Philip Olivia Performed by: Comment Normal [facility] Comment on above: Result Comment: Davida Moore, Internal Revenue Agent (ASCP) Performed at: WB Performed By: #### A NAIFA #### [facility] [address] [address] [address] Philip Olivia Specimen adequacy: Comment Normal [facility] Comment on above: Result Comment: Sati sfactory for evaluation. Endocervical and/or squamous metaplastic cells (endocervical component) are present. Performed at: WB Performed By: #### A NAIFA #### [facility] [address] [place] [address] Dr. Philip Olivia US PELVIS AND TRANSVAGon [...] adnexal findings. Electronically authenticated by: JUAN DAVID ESCALANTE Date: 2022-07-15 21:28 Normal [facility] RAD - MISCon 07-08-2022 RAD - MISC [id number] 1.00CD:127 Normal [facility] RAD - Ultrasound Reporton RAD - Ultrasound Report [id number] .00CD:127 Normal [facility] US KIDNEYSon 06-19-2022 US KIDNEYS EXAMINATION: US [...] by: FORTINO FARNSWORTH Date: 2022-06-19 10:05 Normal [facility] XR KUB 1 VIEWon 06-19-2022 XR KUB [...] by: FORTINO FARNSWORTH Date: 2022-06-19 10:19 Normal [facility] UroVysion Fish and Urine Cyt o ([facility])on 06-16-2022 UVFISH & UC Diagnosis Info Invalid Interpretation Code [facility] Comment on above: Result Comment: A:Ur ine,Urine:Voided [...] on: 06/16/2022 15:04:31 Performed By: #### 1 [id number] #### [facility] [address] [place] [id number] Formson 06-05-2022 Forms [id number] .00CD:127 Normal [facility] Historical Records Officeon 06-05-2022 Historical Records Office [id number]# 1.00CD:127 Normal [facility] Ambulatory Visit Summaryon 0 06-04-2022 Ambulatory Visit Summary GINNY CEJA :1965 Visit Date:06/04/2022 Ambulatory Visit Instructions Your Diagnosis History of UTI History of kidney stones Hematuria History of urethral stricture Left lower quadrant abdominal pain Tests Performed Urnls Dip Stick Auto w/o Microscopy POC 03600 US Renal -- Results Pending -- XR Abdomen 1 View -- Results Pending -- Please visit your patient portal for your results or contact your primary care physician. Your Care Team Attending Physician - Mic Cheema Primary Care Physician - Jass Greenfield MD This Is Your Medications List brompheniramine/dextr omethorphan/PSE (Bromfed DM oral syrup) thyroid desiccated ([place] Thyroid 60 mg Tab) Procedures Performed Cystourethroscopy with dilation of urethral stricture (08/30/2012), Cystourethroscopy with dilation of urethral stricture (12/21/2009), section. Discharge Vitals Heart Rate (Peripheral) 87 Blood Pressure 125/90 Height 165 cm Height 165.0 cm Weight 102.2 kg Weight 102.2 kg BMI 37.54 What to do next Scheduled Follow-Up Appointments Thursday 9:00 AM EST With: Mic Cheema Where: [facility] UroVysion Fish and Urine Cyt o ([facility])on 06-04-2022 [facility] Method of Extraction Voided Normal [facility] Comment on above: Performed By: #### 1 [id number] #### [facility] [address] [place] [address] [facility] Number of Jars 1 Invalid Interpretation Code [facility] Comment on above: Performed By: #### 1 [id number] #### [facility] [address] [place] [address] [facility] Specimen Urine Normal [facility] Comment on above: Performed By: #### 1 [id number] #### [facility] [address] [place] [address] [facility] Type of Service Technical Only [facility] Comment on above: Performed By: #### 1 [id number] #### [facility] [address] [place] [address] Urology Office/Clinic Noteon 06-04-2022 Urology Office/Clinic Note [...] E&M of New Patient Moderate 45-59 Min 81592 US Renal XR Abdomen 1 View 2. Hematuria (R31.9: Hematuria, unspecified) Possible hematuria. A couple of years ago started w/ getting spots of blood in her underwear. [employer] provider seen at that time and D [...] of smoking. 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 Work-up for hematuria discussed: [...] call w/ (more content not included)... Normal [facility] Comment on above: Result Comment: Elec tronically Signed By: Cecelia GASTELUM, Mic Guerra\.don\Date and Time Signed: 06/04/22 21:[address] [...] JUAN DAVID ESCALANTE Date: 2022-04-25 07:20 Normal [facility] HEMOGLOBINon 04-18-2022 Hemoglobin (Bld) [Mass/Vol] 14.4 g/dL Normal 12.0-16.0 [facility] Comment on above: Performed By: #### H GB #### [facility] [address] [place] [address] Dr. Philip Olivia US CAROTID ART BILon 14-2 022 US CAROTID ART MAIKEL EXAMINATION: US [...] DAVID ESCALANTE Date: 2022-03-18 16:17 Normal [facility] IMMUNOGLOBULIN E, TOTALon Immunoglobulin E, Total 149 IU/mL Normal 6-495 [facility] Comment on above: Performed By: #### A NAIFA #### [facility] [address] [place] [address] Dr. Philip Olivia PROTEIN ELECTROPHERESISon Albumin [Mass/Vol] 3.7 g/dL Normal 2.9-4.[address] [facility] Comment on above: Performed By: #### A NAIFA #### [facility] [address] [place] [address] Dr. Philip Olivia Albumin/Globulin [Mass ratio] 0.9 {ratio} Normal 0.7-1.7 [facility] Comment on above: Performed By: #### A NAIFA #### [facility] [address] [place] [address] Dr. Philip Olivia Muyux-7-Csgsckkl 0.2 g/dL Normal 0.0-0.4 [facility] Comment on above: Performed By: #### A NAIFA #### [facility] [address] [place] [address] Dr. Philip Olivia Rhhrp-4-Ohzbdzam 1.0 g/dL Normal 0.4-1.0 [facility] Comment on above: Performed By: #### A NAIFA #### [facility] [address] [place] [address] Dr. Philip Olivia Beta Globulin 1.4 g/dL Critically high 0.7-1.3 [facility] Comment on above: Performed By: #### A NAIFA #### [facility] [address] [place] [address] Dr. Philip Olivia Gamma Globulin 1.3 g/dL Normal 0.4-1.8 [facility] Comment on above: Performed By: #### A NAIFA #### [facility] [address] [place] [address] Dr. Philip Olivia Globulin (S) [Mass/Vol] 3.9 g/dL Normal 2.2-3.9 [facility] Comment on above: Performed By: #### A NAIFA #### [facility] [address] [place] [address] Dr. Philip Olivia M-Fabrice Not Observed Normal Not Observed [facility] Comment on above: Performed By: #### A NAIFA #### [facility] [address] [place] [address] Dr. Philip Olivia PDF . Normal [facility] Comment on above: Performed By: #### A NAIFA #### [facility] [address] [place] [address] Dr. Philip Olivia Please note: Comment Normal [facility] Comment on above: Result Comment: Prot ein electrophoresis scan will follow via computer, mail, or wall taper delivery. Performed By: #### A NAIFA #### [facility] [address] [place] [address] Dr. Philip Olivia Protein [Mass/Vol] 7.6 g/dL Normal 6.0-8.5 [facility] Comment on above: Performed By: #### A NAIFA #### [facility] [address] [place] [address] Dr. Philip Olivia TOREY by IFAon 11-28-2021 Antinuclear Antibodies, IFA Negative Normal [facility] Comment on above: Result Comment: Nega tive <1:80 Borderline 1:80 Positive >1:80 ICAP nomenclature: AC-0 For more information about Hep-2 cell patterns use ANApatterns.org, the official website for the International Consensus on Antinuclear Antibody (TOREY) Patterns (ICAP). Performed By: #### A NAIFA #### [facility] [address] [place] [address] Dr. Philip Olivia ANTISTREPTOLYSIN O AB (ASO)o n 11-28-2021 Antistreptolysin O Ab 48.5 IU/mL Normal 0.0-200.0 [facility] Comment on above: Performed By: #### A SOAB #### [facility] [address] [place] [address] Dr. Philip Olivia IMMUNOGLOBULINS IGA/IGM/IGG QUANTITATIVEon 11-28-2021 Immunoglobulin A, Qn, Serum 368 mg/dL Critically high 87-352 [facility] Comment on above: Performed By: #### A SOAB #### [facility] [address] [place] [address] Dr. Philip Olivia Immunoglobulin G, Qn, Serum 1199 mg/dL Normal 586-1602 [facility] Comment on above: Performed By: #### A SOAB #### [facility] [address] [place] [address] Dr. Philip Olivia Immunoglobulin M, Qn, Serum 101 mg/dL Normal 26-217 [facility] Comment on above: Performed By: #### A SOAB #### [facility] [address] [place] [address] Dr. Philip Olivia RHEUMATOID FACTORon 11-28-19 RA Latex Turbid. 10.3 IU/mL Normal <14.0 [facility] Comment on above: Performed By: #### R F #### [facility] [address] [place] [address] Dr. Philip Olivia US SINGLE QUAD RT [...] by: FORTINO FARNSWORTH Date: 2021-11-28 10:42 Normal [facility] ALBUMINon 11-27-2021 Albumin [Mass/Vol] 3.9 g/dL Normal 3.5-5.0 [facility] Comment on above: Performed By: #### A SOAB #### [facility] [address] [place] [address] Dr. Philip Olivia ALKALINE PHOSPHAon ALP [Catalytic activity/Vol] 163 U/L Critically high 38-126 [facility] Comment on above: Performed By: #### A SOAB #### [facility] [address] [place] [address] Dr. Philip Olivia BILIRUBIN CONJUGATED (DIRECT )on 11-27-2021 BILI, CONJUGATED 0.1 mg/dL Normal 0.0-0.3 [facility] Comment on above: Performed By: #### C VDTBH #### [facility] [address] [place] [address] Dr. Philip Olivia BILIRUBIN TOTALon 11-27-2021 Bilirubin [Mass/Vol] 0.5 mg/dL Normal 0.2-1.3 [facility] Comment on above: Performed By: #### A LP, ALB, ALT, AST, TPROT, CRP, URIC, TBIL #### [facility] [address] [place] [address] Dr. Philip Olivia CBC AUTO DIFFon 11-27-2021 BASO # 0.1 103/ul Normal 0.0-0.1 [facility] Comment on above: Performed By: #### C BC #### [facility] [address] [place] [address] Dr. Philip Olivia Basophils/100 WBC (Bld) 0.7 % Normal 0.2-2.0 [facility] Comment on above: Performed By: #### C BC #### [facility] [address] [place] [address] Dr. Philip Olivia EO # 0.4 103/ul Normal 0.0-0.7 [facility] Comment on above: Performed By: #### C BC #### [facility] [address] [place] [address] Dr. Philip Olivia Eosinophils/100 WBC (Bld) 3.7 % Normal 0.9-7.0 [facility] Comment on above: Performed By: #### C BC #### [facility] [address] [place] [address] Dr. Philip Olivia Erythrocyte distribution width (RBC) [Ratio] 12.9 % Normal 11.0-15.0 [facility] Comment on above: Performed By: #### C BC #### [facility] [address] [place] [address] Dr. Philip Olivia Hematocrit (Bld) [Volume fraction] 47.3 % Normal 36.0-48.0 [facility] Comment on above: Performed By: #### C BC #### [facility] [address] [place] [address] Dr. Philip Olivia Hemoglobin (Bld) [Mass/Vol] 15.3 g/dL Normal 12.0-16.0 [facility] Comment on above: Performed By: #### C BC #### [facility] [address] [place] [address] Dr. Philip Olivia IG # 0.09 10e3/ul Critically high 0.00-0.[address] [facility] Comment on above: Performed By: #### C BC #### [facility] [address] [place] [address] Dr. Philip Olivia IG % 0.9 % Critically high 0.0-0.5 [facility] Comment on above: Performed By: #### C BC #### [facility] [address] [place] [address] Dr. Philip Olivia LYMPH # 2.3 103/ul Normal 1.2-3.8 [facility] Comment on above: Performed By: #### C BC #### [facility] [address] [place] [address] Dr. Philip Olivia Lymphocytes/100 WBC (Bld) 23.8 % Normal 20.5-60.0 [facility] Comment on above: Performed By: #### C BC #### [facility] [address] [place] [address] Dr. Philip Olivia MANUAL DIFF REQ NO Normal [facility] Comment on above: Performed By: #### C BC #### [facility] [address] [place] [address] Dr. Philip Olivia MCH (RBC) [Entitic mass] 29.9 pg Normal 26.7-34.0 [facility] Comment on above: Performed By: #### C BC #### [facility] [address] [place] [address] Dr. Philip Olivia MCHC (RBC) [Mass/Vol] 32.3 g/dL Normal 29.9-35.2 [facility] Comment on above: Performed By: #### C BC #### [facility] [address] [place] [address] Dr. Philip Olivia MCV (RBC) [Entitic vol] 92.4 fL Normal 81.0-99.0 [facility] Comment on above: Performed By: #### C BC #### [facility] [address] [place] [address] Dr. Philip Olivia MONO # 0.6 103/ul Normal 0.3-0.8 [facility] Comment on above: Performed By: #### C BC #### [facility] [address] [place] [address] Dr. Philip Olivia Monocytes/100 WBC (Bld) 5.8 % Normal 1.7-12.0 [facility] Comment on above: Performed By: #### C BC #### [facility] [address] [place] [address] Dr. Philip Olivia NEUT # 6.4 103/ul Normal 1.4-6.5 [facility] Comment on above: Performed By: #### C BC #### [facility] [address] [place] [address] Dr. Philip Olivia Neutrophils/100 WBC (Bld) 65.1 % Normal 43.0-75.0 [facility] Comment on above: Performed By: #### C BC #### [facility] [address] [place] [address] Dr. Philip Olivia Platelet mean volume (Bld) [Entitic vol] 9.6 fL Normal 9.5-13.5 [facility] Comment on above: Performed By: #### C BC #### [facility] [address] [place] [address] Dr. Philip Olivia PLT 325 103/ul Normal 150-450 [facility] Comment on above: Performed By: #### C BC #### [facility] [address] [place] [address] Dr. Philip Olivia RBC 5.12 106/ul Normal 4.20-5.40 [facility] Comment on above: Performed By: #### C BC #### [facility] [address] [place] [address] Dr. Philip Olivia WBC 9.8 103/ul Normal 4.0-11.0 [facility] Comment on above: Performed By: #### C BC #### [facility] [address] [place] [address] Dr. Philip Olivia CRPon 11-27-2021 CRP 1.4 mg/dL Critically high <=1.0 [facility] Comment on above: Performed By: #### A SOAB #### [facility] [address] [place] [address] Dr. Philip Olivia FREE T3on 11-27-2021 FREE T3 3.91 pg/mlL Normal 2.77-5.27 [facility] Comment on above: Performed By: #### C VDTBH #### [facility] [address] [place] [address] Dr. Philip Olivia FREE T4on 11-27-2021 Free T4 [Mass/Vol] 0.94 ng/dL Normal 0.78-2.19 [facility] Comment on above: Performed By: #### A ROSEANNE #### [facility] [address] [place] [address] Dr. Philip Olivia LIVER PROFILEon 11-27-2021 Albumin [Mass/Vol] 3.8 g/dL Normal 3.5-5.[address] [facility] Comment on above: Performed By: #### C VDTBH #### [facility] [address] [place] [address] Dr. Philip Olivia Albumin/Globulin [Mass ratio] 0.8 {ratio} Normal [facility] Comment on above: Performed By: #### C VDTBH #### [facility] [address] [place] [address] Dr. Philip Olivia ALP [Catalytic activity/Vol] 154 U/L Critically high 38-126 [facility] Comment on above: Performed By: #### C VDTBH #### [facility] [address] [place] [address] Dr. Philip Olivia ALT [Catalytic activity/Vol] 52 U/L Normal 9-52 [facility] Comment on above: Performed By: #### C VDTBH #### [facility] [address] [place] [address] Dr. Philip Olivia AST [Catalytic activity/Vol] 23 U/L Normal 14-36 [facility] Comment on above: Performed By: #### C VDTBH #### [facility] [address] [place] [address] Dr. Philip Olivia Bilirubin [Mass/Vol] 0.5 mg/dL Normal 0.2-1.3 [facility] Comment on above: Performed By: #### C VDTBH #### [facility] [address] [place] [address] Dr. Philip Olivia Globulin (S) [Mass/Vol] 4.6 g/dL Normal [facility] Comment on above: Performed By: #### C VDTBH #### [facility] [address] [place] [address] Dr. Philip Olivia Protein [Mass/Vol] 8.4 g/dL Critically high 6.1-8.2 [place] Comment on above: Performed By: #### C VDTBH #### [facility] [address] [place] [address] Dr. Philip Olivia PROF CHEM 8 (BAS METB)on Anion gap [Moles/Vol] 13.9 mmol/L Normal [facility] Comment on above: Performed By: #### C VDTBH #### [facility] [address] [address] [address] Philip Olivia Calcium [Mass/Vol] 9.5 mg/dL Normal 8.4-10.[address] [facility] Comment on above: Performed By: #### C VDTBH #### [facility] [address] [place] [address] Dr. Philip Olivia Chloride [Moles/Vol] 103 mmol/L Normal 98-107 [facility] Comment on above: Performed By: #### C VDTBH #### [facility] [address] [place] [address] Dr. Philip Olivia CO2 [Moles/Vol] 27.4 mmol/L Normal 22.0-30.0 [facility] Comment on above: Performed By: #### C VDTBH #### [facility] [address] [place] [address] Dr. Philip Olivia Creatinine [Mass/Vol] 0.84 mg/dL Normal 0.52-1.04 [facility] Comment on above: Performed By: #### C VDTBH #### [facility] [address] [place] [address] Dr. Philip Olivia EGFR-AF RWANDAN >60 Normal >=60 [facility] Comment on above: Performed By: #### C VDTBH #### [facility] [address] [place] [address] Dr. Philip Olivia EGFR-NON AF RWANDAN >60 Normal >=60 [facility] Comment on above: Performed By: #### C VDTBH #### [facility] [address] [address] [address] Philip Olivia Glucose [Mass/Vol] 93 mg/dL Normal 74-[address] [facility] Comment on above: Performed By: #### C VDTBH #### [facility] [address] [place] [address] Dr. Philip Olivia Potassium [Moles/Vol] 4.3 mmol/L Normal 3.4-5.0 [facility] Comment on above: Performed By: #### C VDTBH #### [facility] [address] [place] [address] Dr. Philip Olivia Sodium [Moles/Vol] 140 mmol/L Normal 137-[address] [facility] Comment on above: Performed By: #### C VDTBH #### [facility] [address] [place] [address] Dr. Philip Olivia Urea nitrogen [Mass/Vol] 14.0 mg/dL Normal 7.0-17.0 [facility] Comment on above: Performed By: #### C VDTBH #### [facility] [address] [place] [address] Dr. Philip Olivia Urea nitrogen/Creatinine [Mass ratio] 16.7 mg/mg Normal [facility] Comment on above: Performed By: #### C VDTBH #### [facility] [address] [place] [address] Dr. Philip Olivia SGOTon 11-27-2021 AST [Catalytic activity/Vol] 25 U/L Normal 14-36 [facility] Comment on above: Performed By: #### A SOAB #### [facility] [address] [place] [address] Dr. Philip Olivia SGPTon 11-27-2021 ALT [Catalytic activity/Vol] 52 U/L Normal 9-52 [facility] Comment on above: Performed By: #### A SOAB #### [facility] [address] [place] [address] Dr. Philip Olivia T PROTEIN SERUMon 11-27-2021 Protein [Mass/Vol] 8.6 g/dL Critically high 6.1-8.2 [place] Comment on above: Performed By: #### A SOAB #### [facility] [address] [address] [address] Philip Olivia TSHon 11-27-2021 TSH 0.595 uIU/mL Normal 0.470-4.680 [facility] Comment on above: Performed By: #### C VDTBH #### [facility] [address] [place] [address] Dr. Philip Olivia TSH RANGE SEE BELOW Normal [facility] Comment on above: Result Comment: <0.3 4 UIU/ml HYPERTHYROID 0.34-5.60 UIU/ml EUTHYROID >5.60 UIU/ml HYPOTHYROID Performed By: #### C VDTBH #### [facility] [address] [place] [address] Dr. Philip Olivia URIC ACID SERUMon 11-27-2021 Urate [Mass/Vol] 5.3 mg/dL Normal 2.5-6.2 [facility] Comment on above: Performed By: #### A SOAB #### [facility] [address] [place] [address] Dr. Philip Olivia Covid-19 PCR ([facility])on 10-06 SARS-CoV-2 (COVID-19) RNA ANTHONY+probe Ql (Unsp spec) Not detected Normal NOT DETECTED [facility] Comment on above: Result Comment: This test is not yet approved or cleared by the [place] FDA. When there are no FDA-approved or cleared tests available, and other criteria are met, FDA can make tests available under an emergency access mechanism called an Emergency Use Authorization (EUA). The EUA for this test is supported by the [place] of Health and Human Service's (HHS's) declaration [...] SARS-CoV-2. Performed By: #### C VDTBH #### [facility] [address] [place] [address] Dr. Philip Olivia IMMUNOGLOBULINS IGA/IGM/IGG/ IGE QUANTITAon 10-03-2021 Immunoglobulin A, Qn, Serum 430 mg/dL Critically high 87-352 [facility] Comment on above: Result Comment: Perf ormed at: CB Performed By: #### A SOAB #### [facility] [address] [place] [address] Dr. Philip Olivia Immunoglobulin E, Total 218 IU/mL Normal 6-495 [facility] Comment on above: Result Comment: Perf ormed at: BN Performed By: #### A SOAB #### [facility] [address] [place] [address] Dr. Philip Olivia Immunoglobulin G, Qn, Serum 1284 mg/dL Normal 586-1602 [facility] Comment on above: Result Comment: Perf ormed at: CB Performed By: #### A SOAB #### [facility] [address] [place] [address] Dr. Philip Olivia Immunoglobulin M, Qn, Serum 117 mg/dL Normal 26-217 [facility] Comment on above: Result Comment: Perf ormed at: CB Performed By: #### A SOAB #### [facility] [address] [place] [address] Dr. Philip Olivia Covid-19 PCR ([facility])on 09-05 SARS-CoV-2 (COVID-19) RNA ANTHONY+probe Ql (Unsp spec) Detected Critically abnormal NOT DETECTED [facility] Comment on above: Result Comment: This test is not yet approved or cleared by the [place] FDA. When there are no FDA-approved or cleared tests available, and other criteria are met, FDA can make tests available under an emergency access mechanism called an Emergency Use Authorization (EUA). The EUA for this test is supported by the [place] of Health and Human Service's (HHS's) declaration [...] longer be used). Performed By: #### C VDTB #### [facility] [address] [place] [address] Dr. Philip Olivia VIT D 1 25 DIHYDROXYon 10-02 Calcitriol(1,25 di-OH Vit D) 44.8 pg/mL Normal 19.9-79.3 [facility] Comment on above: Performed By: #### A ROSEANNE #### [facility] [address] [place] [address] Dr. Philip Olivia FRANKIE-GRESHAM VIRUS (EBV) AB PROFILEon 10-01-2021 EBV Ab VCA, IgG 342.0 U/mL Critically high 0.0-17.9 [facility] Comment on above: Result Comment: Nega tive <18.0 Equivocal 18.0 - 21.9 Positive >21.9 Performed By: #### C VDTB #### [facility] [address] [place] [address] Dr. Philip Olivia EBV Ab VCA, IgM <36.0 Normal 0.0-35.9 [facility] Comment on above: Result Comment: Nega tive <36.0 Equivocal 36.0 - 43.9 Positive >43.9 Performed By: #### C VDTB #### [facility] [address] [place] [address] Dr. Philip Olivia EBV Nuclear Antigen Ab, IgG <18.0 Normal 0.0-17.9 [facility] Comment on above: Result Comment: Nega tive <18.0 Equivocal 18.0 - 21.9 Positive >21.9 Performed By: #### C VDTBH #### [facility] [address] [place] [address] Dr. Philip Olivia Interpretation: Comment Normal [facility] Comment on above: Result Comment: EBV [...] EBNA. Performed By: #### C VDTBH #### [facility] [address] [place] [address] Dr. Philip Olivia INSULINon 10-01-2021 Insulin 17.5 uIU/mL Normal 2.6-24.9 [facility] Comment on above: Performed By: #### C VDTBH #### [facility] [address] [place] [address] Dr. Philip Olivia CBC AUTO DIFFon 09-30-2021 BASO # 0.0 103/ul Normal 0.0-0.1 [facility] Comment on above: Performed By: #### C VDTBH #### [facility] [address] [place] [address] Dr. Philip Olivia Basophils/100 WBC (Bld) 0.4 % Normal 0.2-2.0 [facility] Comment on above: Performed By: #### C VDTBH #### [facility] [address] [place] [address] Dr. Philip Olivia EO # 0.3 103/ul Normal 0.0-0.7 [facility] Comment on above: Performed By: #### C VDTBH #### [facility] [address] [place] [address] Dr. Philip Olivia Eosinophils/100 WBC (Bld) 3.9 % Normal 0.9-7.0 [facility] Comment on above: Performed By: #### C VDTBH #### [facility] [address] [place] [address] Dr. Philip Olivia Erythrocyte distribution width (RBC) [Ratio] 12.4 % Normal 11.0-15.0 [facility] Comment on above: Performed By: #### C VDTBH #### [facility] [address] [place] [address] Dr. Philip Olivia Hematocrit (Bld) [Volume fraction] 48.9 % Critically high 36.0-48.0 [facility] Comment on above: Performed By: #### C VDTBH #### [facility] [address] [place] [address] Dr. Philip Olivia Hemoglobin (Bld) [Mass/Vol] 15.8 g/dL Normal 12.0-16.0 [facility] Comment on above: Performed By: #### C VDTBH #### [facility] [address] [place] [address] Dr. Philip Olivia IG # 0.04 10e3/ul Critically high 0.00-0.[address] [facility] Comment on above: Performed By: #### C VDTBH #### [facility] [address] [place] [address] Dr. Philip Olivia IG % 0.5 % Normal 0.0-0.5 [facility] Comment on above: Performed By: #### C VDTBH #### [facility] [address] [place] [address] Dr. Philip Olivia LYMPH # 1.9 103/ul Normal 1.2-3.8 [facility] Comment on above: Performed By: #### C VDTBH #### [facility] [address] [place] [address] Dr. Philip Olivia Lymphocytes/100 WBC (Bld) 26.0 % Normal 20.5-60.0 [facility] Comment on above: Performed By: #### C VDTBH #### [facility] [address] [place] [address] Dr. Philip Olivia MANUAL DIFF REQ NO Normal [facility] Comment on above: Performed By: #### C VDTBH #### [facility] [address] [place] [address] Dr. Philip Olivia MCH (RBC) [Entitic mass] 29.9 pg Normal 26.7-34.0 [facility] Comment on above: Performed By: #### C VDTBH #### [facility] [address] [place] [address] Dr. Philip Olivia MCHC (RBC) [Mass/Vol] 32.3 g/dL Normal 29.9-35.2 [facility] Comment on above: Performed By: #### C VDTBH #### [facility] [address] [place] [address] Dr. Philip Olivia MCV (RBC) [Entitic vol] 92.4 fL Normal 81.0-99.0 [facility] Comment on above: Performed By: #### C VDTBH #### [facility] [address] [place] [address] Dr. Philip Olivia MONO # 0.6 103/ul Normal 0.3-0.8 [facility] Comment on above: Performed By: #### C VDTBH #### [facility] [address] [place] [address] Dr. Philip Olivia Monocytes/100 WBC (Bld) 8.4 % Normal 1.7-12.0 [facility] Comment on above: Performed By: #### C VDTBH #### [facility] [address] [place] [address] Dr. Philip Olivia NEUT # 4.5 103/ul Normal 1.4-6.5 [facility] Comment on above: Performed By: #### C VDTBH #### [facility] [address] [place] [address] Dr. Philip Olivia Neutrophils/100 WBC (Bld) 60.8 % Normal 43.0-75.0 [facility] Comment on above: Performed By: #### C VDTBH #### [facility] [address] [place] [address] Dr. Philip Olivia Platelet mean volume (Bld) [Entitic vol] 9.5 fL Normal 9.5-13.5 [facility] Comment on above: Performed By: #### C VDTBH #### [facility] [address] [place] [address] Dr. Philip Olivia PLT 311 103/ul Normal 150-450 [facility] Comment on above: Performed By: #### C VDTBH #### [facility] [address] [address] [address] Philip Olivia RBC 5.29 106/ul Normal 4.20-5.40 [facility] Comment on above: Performed By: #### C VDTBH #### [facility] [address] [address] [address] Philip Olivia WBC 7.4 103/ul Normal 4.0-11.0 [facility] Comment on above: Performed By: #### C VDTBH #### [facility] [address] [address] [address] Philip Olivia CULTURE SPUTUMon 09-30-2021 CULTURE SPUTUM Culture Observations : NORMAL RESPIRATORY MAJOR. Normal [facility] Comment on above: Performed By: #### H GB #### [facility] [address] [place] [address] Dr. Philip Olivia FREE THYROXINE INDEX T7on FTI 2.88 Normal [facility] Comment on above: Performed By: #### H GB #### [facility] [address] [place] [address] Dr. Philip Olivia T3U 31.0 % Normal 23.5-40.5 [facility] Comment on above: Performed By: #### H GB #### [facility] [address] [place] [address] Dr. Philip Olivia T4 [Mass/Vol] 9.30 ug/dL Normal 5.53-11.00 [facility] Comment on above: Performed By: #### H GB #### [facility] [address] [place] [address] Dr. Philip Olivia GLYCOHEMOGLOBIN A1Con 2020 ADA RECOMMENDATION ADA THERAPEUTIC TARGET 6.0 - 7.0 ACTION SUGGESTED > 7.0 [facility] Comment on above: Performed By: #### A 1C #### [facility] [address] [address] [address] Philip Olivia Glucose [Mass/Vol] 114 mg/dL Normal [facility] Comment on above: Performed By: #### A 1C #### [facility] [address] [place] [address] Dr. Philip Olivia HbA1c (Bld) [Mass fraction] 5.6 % Normal <=6.0 [facility] Comment on above: Performed By: #### A 1C #### [facility] [address] [address] [address] Philip Olivia IRONon 09-30-2021 Iron [Mass/Vol] 37.0 ug/dL Normal 37.0-170.0 [facility] Comment on above: Performed By: #### C VDTBH #### [facility] [address] [place] [address] Dr. Philip Olivia LIPID PROFILEon 09-30-2021 CHOL-HDL RATIO NORM SEE BELOW Normal [facility] Comment on above: Result Comment: 3.3 - 4.4 LOW RISK 4.4 - 7.1 AVERAGE RISK 7.1 - 11.0 MODERATE RISK >11.0 HIGH RISK Performed By: #### H GB #### [facility] [address] [place] [address] Dr. Philip Olivia Cholesterol [Mass/Vol] 219 mg/dL Critically high <=200 [facility] Comment on above: Performed By: #### H GB #### [facility] [address] [place] [address] Dr. Philip Olivia Cholesterol in HDL [Mass/Vol] 44 mg/dL Normal [facility] Comment on above: Performed By: #### H GB #### [facility] [address] [address] [address] Philip Olivia Cholesterol in LDL [Mass/Vol] 149.0 mg/dL Normal [facility] Comment on above: Performed By: #### H GB #### [facility] [address] [place] [address] Dr. Philip Olivia Cholesterol.total/Cho lesterol in HDL [Mass ratio] 5.0 {ratio} Normal [facility] Comment on above: Performed By: #### H GB #### [facility] [address] [place] [address] Dr. Philip Olivia HDL NORMAL > or = 60 mg/dl - LO W CARDIOVASCULAR RISK <40 mg/dl - HIGH CARDIOVASCULAR RISK Normal [facility] Comment on above: Performed By: #### H GB #### [facility] [address] [address] [address] Philip Olivia LDL CALC NORMAL SEE BELOW Normal [facility] Comment on above: Result Comment: <100 mg/dl OPTIMAL 100 - 129 mg/dl NEAR OR ABOVE OPTIMAL 130 - 159 mg/dl BORDERLINE HIGH 160 - 189 mg/dl HIGH >190 mg/dl VERY HIGH Performed By: #### H GB #### [facility] [address] [address] [address] Philip Olivia Triglyceride [Mass/Vol] 130 mg/dL Normal <=150 [facility] Comment on above: Performed By: #### H GB #### [facility] [address] [place] [address] Dr. Philip Olivia VLDL CALC 26.0 mg/dL Normal [facility] Comment on above: Performed By: #### H GB #### [facility] [address] [address] [address] Philip Olivia MONOon 09-30-2021 Monocytes (Bld) [#/Vol] Negative Normal NEGATIVE [facility] Comment on above: Performed By: #### A ROSEANNE #### [facility] [address] [place] [address] Dr. Philip Olivia PROF 14(COMP METB)on 021 Albumin [Mass/Vol] 3.7 g/dL Normal 3.5-5.[address] [facility] Comment on above: Performed By: #### H GB #### [facility] [address] [address] [address] Philip Olivia Albumin/Globulin [Mass ratio] 0.8 {ratio} Normal [facility] Comment on above: Performed By: #### H GB #### [facility] [address] [address] [address] Philip Olivia ALP [Catalytic activity/Vol] 146 U/L Critically high 38-126 [facility] Comment on above: Performed By: #### H GB #### [facility] [address] [address] [address] Philip Olivia ALT [Catalytic activity/Vol] 33 U/L Normal 9-52 [facility] Comment on above: Performed By: #### H GB #### [facility] [address] [address] [address] Philip Olivia Anion gap [Moles/Vol] 16.8 mmol/L Normal [facility] Comment on above: Performed By: #### H GB #### [facility] [address] [address] [address] Philip Olivia AST [Catalytic activity/Vol] 15 U/L Normal 14-36 [facility] Comment on above: Performed By: #### H GB #### [facility] [address] [place] [address] Dr. Philip Olivia Bilirubin [Mass/Vol] 0.4 mg/dL Normal 0.2-1.3 [facility] Comment on above: Performed By: #### H GB #### [facility] [address] [place] [address] Dr. Philip Olivia Calcium [Mass/Vol] 9.3 mg/dL Normal 8.4-10.[address] [facility] Comment on above: Performed By: #### H GB #### [facility] [address] [place] [address] Dr. Philip Olivia Chloride [Moles/Vol] 101 mmol/L Normal 98-107 [facility] Comment on above: Performed By: #### H GB #### [facility] [address] [place] [address] Dr. Philip Olivia CO2 [Moles/Vol] 24.1 mmol/L Normal 22.0-30.0 [facility] Comment on above: Performed By: #### H GB #### [facility] [address] [place] [address] Dr. Philip Olivia Creatinine [Mass/Vol] 0.91 mg/dL Normal 0.52-1.04 [facility] Comment on above: Performed By: #### H GB #### [facility] [address] [address] [address] Philip Olivia EGFR-AF RWANDAN >60 Normal >=60 [facility] Comment on above: Performed By: #### H GB #### [facility] [address] [address] [address] Philip Olivia EGFR-NON AF RWANDAN >60 Normal >=60 [facility] Comment on above: Performed By: #### H GB #### [facility] [address] [address] [address] Philip Olivia Globulin (S) [Mass/Vol] 4.8 g/dL Normal [facility] Comment on above: Performed By: #### H GB #### [facility] [address] [address] [address] Philip Olivia Glucose [Mass/Vol] 95 mg/dL Normal 74-[address] [facility] Comment on above: Performed By: #### H GB #### [facility] [address] [address] [address] Philip Olivia Potassium [Moles/Vol] 3.9 mmol/L Normal 3.4-5.0 [facility] Comment on above: Performed By: #### H GB #### [facility] [address] [address] [address] Philip Olivia Protein [Mass/Vol] 8.5 g/dL Critically high 6.1-8.2 [facility] Comment on above: Performed By: #### H GB #### [facility] [address] [address] [address] Philip Olivia Sodium [Moles/Vol] 138 mmol/L Normal 137-[address] [facility] Comment on above: Performed By: #### H GB #### [facility] [address] [address] [address] Philip Olivia Urea nitrogen [Mass/Vol] 13.0 mg/dL Normal 7.0-17.0 [facility] Comment on above: Performed By: #### H GB #### [facility] [address] [address] [address] Philip Olivia Urea nitrogen/Creatinine [Mass ratio] 14.3 mg/mg Normal [facility] Comment on above: Performed By: #### H GB #### [facility] [address] [place] [address] Dr. Philip Olivia SPUTUM GRAM STAINon 09-30-20 COMMENTS >25 epithelial cells noted. May impact validity. Repeat testing if indicated Normal [facility] Comment on above: Performed By: #### C VDTBH #### [facility] [address] [place] [address] Dr. Philip Olivia DIPHTHEROIDS Normal [facility] Comment on above: Performed By: #### C VDTBH #### [facility] [address] [place] [address] Dr. Philip Olivia EPITHELIALS >25 Normal [facility] Comment on above: Performed By: #### C VDTBH #### [facility] [address] [place] [address] Dr. Philip Olivia FUNGAL ELEMENTS Normal [facility] Comment on above: Performed By: #### C VDTBH #### [facility] [address] [place] [address] Dr. Philip Olivia GRAM NEG BACILLI RARE Normal [facility] Comment on above: Performed By: #### C VDTBH #### [facility] [address] [address] [address] Philip Olivia GRAM NEG DIPPLOCOCCI Normal [facility] Comment on above: Performed By: #### C VDTBH #### [facility] [address] [place] [address] Dr. Philip Olivia GRAM POS BACILLI MODERATE Normal [facility] Comment on above: Performed By: #### C VDTBH #### [facility] [address] [address] [address] Philip Olivia GRAM POSITIVE COCCI MODERATE Normal [facility] Comment on above: Performed By: #### C VDTBH #### [facility] [address] [place] [address] Dr. Philip Olivia WBC (Bld) [#/Vol] 10*3/uL Normal [facility] Comment on above: Performed By: #### C VDTBH #### [facility] [address] [address] [address] Philip Olivia TSHon 09-30-2021 TSH 0.953 uIU/mL Normal 0.470-4.680 [facility] Comment on above: Performed By: #### H GB #### [facility] [address] [place] [address] Dr. Philip Olivia TSH RANGE SEE BELOW Normal [facility] Comment on above: Result Comment: <0.3 4 UIU/ml HYPERTHYROID 0.34-5.60 UIU/ml EUTHYROID >5.60 UIU/ml HYPOTHYROID Performed By: #### H GB #### [facility] [address] [place] [address] Dr. Philip Olivia Covid-19 PCR ([facility])on 09-05 SARS-CoV-2 (COVID-19) RNA ANTHONY+probe Ql (Unsp spec) Not detected Normal NOT DETECTED [facility] Comment on above: Result Comment: This test is not yet approved or cleared by the [place] FDA. When there are no FDA-approved or cleared tests available, and other criteria are met, FDA can make tests available under an emergency access mechanism called an Emergency Use Authorization (EUA). The EUA for this test is supported by the Management Associate of Health and Human Service's (HHS's) declaration [...] SARS-CoV-2. Performed By: #### C VDTBH #### [facility] [address] [place] [address] Dr. Philip Olivia INFLUENZA A AND B AGon 09-25 INFLUANEGH SEE BELOW Normal [facility] Comment on above: Result Comment: Nega tive for Flu A protein angiten. Infection due to Flu A cannot be ruled out. Flu A angiten in the sample may be below the detection limit of the test. Performed By: #### A NAIFA #### [facility] [address] [place] [address] Dr. Philip Olivia INFLUBNEG SEE BELOW Normal [facility] Comment on above: Result Comment: Nega tive for Flu B protein antigen. Infection due to Flu B cannot be ruled out. Flu B antigen in the sample may be below the detection limit of the test. Performed By: #### A NAIFA #### [facility] [address] [place] [address] Dr. Philip Olivia INFLUENZA A AG Negative Normal NEGATIVE SEE COMMENT [facility] Comment on above: Performed By: #### A NAIFA #### [facility] [address] [place] [address] Dr. Philip Olivia INFLUENZA B AG Negative Normal NEGATIVE SEE COMMENT [facility] Comment on above: Performed By: #### A NAIFA #### [facility] [address] [place] [address] Dr. Philip Olivia INTERNAL CONTROLS Within Normal Limits Normal Wi thin Normal Limits [facility] Comment on above: Performed By: #### A NAIFA #### [facility] [address] [place] [address] Dr. Philip Olivia Coding Summaryon 08-07-2017 Coding Summary CODING DATE: 08/07/2017 [facility] STATUS: Home PAYOR: Self Pay [...] Austin Revised Date Saved: 05/08/2017 11:32 am [facility] Coding Summaryon 05-08-2017 Coding Summary CODING DATE: 05/08/2017 [facility] STATUS: Home PAYOR: Self Pay [...] Dorie Austin Date Saved: 05/08/2017 11:32 am [facility] XR Spine Lumbosacral Minimum 4 Viewson 05-07-2017 [...] EVALUATION. DEGENERATIVE CHANGES OTHERWISE NOTEDBILATERALLY.ISABEL He #: [id number]: 05/08/2017T: 05/08/2017 Final Dictated by: Santo Velazquez MD SDictated DT/TM: 05/08/17 5:16Signed (Electronic Signature): Santo Velazquez MD 05/08/17 12:33 pTechnologist: [facility] Vital Signs Date Time Vital Sign Value Performing Clinician Facility 09-05-2024 10:43-0500 Body mass index (BMI) [Ratio] 35.91 kg/m2 Cheyenne GASTELUM Work Phone: [facility] 09-05-2024 10:43-0500 Body weight 97.89 kg Cheyenne GASTELUM Work Phone: [facility] 09-05-2024 10:43-0500 Diastolic blood pressure 70 mm[Hg] Cheyenne GASTELUM Work Phone: [facility] 09-05-2024 10:43-0500 Systolic blood pressure 130 mm[Hg] Cheyenne GASTELUM Work Phone: [facility] 06-04-2022 10:50-0400 Blood Pressure Location Mic Rai [facility] 06-04-2022 10:50-0400 Diastolic blood pressure 90 mm[Hg] Mic Rai [facility] 06-04-2022 10:50-0400 Heart rate 87 /min Mic Rai [facility] 06-04-2022 10:50-0400 Systolic blood pressure 125 mm[Hg] Mic Rai [facility] 06-03-2022 10:15-0400 Body height 165.1 cm Ahmte Nascimento Other [facility] Other 06-03-2022 10:15-0400 Body mass index (BMI) [Ratio] 37.11 kg/m2 Ahmet Nascimento Other [facility] Other 06-03-2022 10:15-0400 Body temperature 97.3 [degF] Ahmet Nascimento Other [facility] Other 06-03-2022 10:15-0400 Body weight 101.15 kg Ahmet Nascimento Other [facility] Other 06-03-2022 10:15-0400 Diastolic blood pressure 90 mm[Hg] Ahmet Nascimento Other [facility] Other 06-03-2022 10:15-0400 Respiratory rate 20 /min Ahmet Nascimento Other [facility] Other 06-03-2022 10:15-0400 SaO2% (BldA) [Mass fraction] 99 % Ahmet Nascimento Other [facility] Other 06-03-2022 10:15-0400 Systolic blood pressure 150 mm[Hg] Ahmet Nascimento Other [facility] Other Encounters Encounter Date Encounter Type Care Provider Facility Start: 09-05-2024 End: 09-05-2024 Bamboo flowsheet Cheyenne GASTELUM Work Phone: [facility] Start: 09-05-2024 End: 09-05-2024 Bamboo flowsheet Cheyenne GASTELUM Work Phone: [facility] Start: 09-05-2024 End: 09-05-2024 Patient encounter procedure Cheyenne GASTELUM Work Phone: [facility] Work Phone: Start: 09-05-2024 End: 09-05-2024 Periodic preventive med est patient 40-64yrs Cheyenne GASTELUM Work Phone: [facility] Comment on above: Well woman exam with routine gynecological exam; Breast cancer screening by mammogram; Postmenopausal state Start: 08-15-2024 End: 08-15-2024 ambulatory Juan Last MD Facility:[facility] Start: 09-03-2022 ambulatory Mic Rai Faci lity:[facility] Start: 08-26-2022 End: 08-26-[address] CHRISTINE LOPES Facility:[facility] Start: 07-15-2022 End: 07-16-[address] CHRISTINE LOPES Facility:[facility] Start: 06-19-2022 End: 06-20-[address] JASS GREENFIELD Facility:[facility] Start: 06-04-2022 End: 06-05-2022 ambulatory Mic Rai Facility:[facility] Start: 06-04-2022 End: 06-04-2022 Patient encounter procedure Mic Rai [facility] Start: 06-03-2022 End: 06-03-2022 ambulatory Ahmet Nascimento Other [facility] Other Start: 06-03-2022 Office outpatient ne w 45 minutes Ahmet Nascimento [facility] Start: 04-24-2022 End: 04-25-[address] JASS GREENFIELD Facility:[facility] Start: 04-18-2022 End: 04-19-[address] JASS GREENFIELD Facility:[facility] Start: 03-18-2022 End: 03-19-[address] JASS GREENFIELD Facility:[facility] Start: 12-02-2021 Encounter for genera l adult medical examination without abnormal findings DR QUINCY OLMOS [facility] Start: 11-28-2021 End: 11-29-[address] FORTINO [...] Start: 05-08-2017 End: 05-08-2017 Ambulatory Carl Stoddard Facility:[facility] Start: 05-07-2017 Ambulatory [facility] Richi Facilit y:[facility] Procedures Date Procedure Procedure Detail Performing Clinician Start: 08-30-2012 Cystourethroscopy wi th dilation of urethral stricture Mic Rai Start: 12-21-2009 Cystourethroscopy wi th dilation of urethral stricture Lantarae Cecelia section Alexandere Hay pepper Comment on above: x3 Plan of Treatment Date Care Activity Detail Author Start: 09-11-2025 End: 09-11-2025 Patient encounter procedure 09/11/2025 10:00 AM EST Office Visit [facility] [address] [place] [id number] Cheyenne Birmingham PA [address] [place] [address] [facility] Start: 09-05-2024 End: 09-05-2025 DXA Skeletal system Views for bone density DEXA bone density Imaging Routine Postmenopausal state Expected: 09/05/2024 (Approximate), Expires: 09/05/2025 [facility] Comment on above: Expected: 09/05/2024 (Approximate), Expires: 09/05/2025 Start: 09-05-2024 End: 11-06-2025 MG Breast - bilateral Screening Bilateral screening mammogram Imaging Routine Breast cancer screening by mammogram Expected: 09/05/2024, Expires: 11/06/2025 [facility] Work Phone: Comment on above: Expected: 09/05/2024 , Expires: 11/06/2025 Start: 09-05-2024 End: 09-05-2024 Patient encounter procedure 09/05/2024 10:00 AM EST Office Visit [facility] [address] [address] Cheyenne Birmingham PA [address] [place] [address] Arrived [facility] Comment on above: Arrived THIN PREP TIS PAP AN D HR HPV DNA THIN PREP TIS PAP AND HR HPV DNA Pathology and Cytology Routine Well woman exam with routine gynecological exam Ordered: 09/05/2024 [facility] Comment on above: Ordered: 09/05/2024 Immunizations Immunization Date Immunization Notes Care Provider Fa cility NEGATED: Highlighted row has not occurred!06-04-2022 SARS-CoV-2 mRNA (tozinameran 5y-11y) vaccine Mic Rai [facility] Payers Date Payer Category Payer Self-pay 2017 Unknown [id number] 2017 Unknown 1965 Unknown [id number] 2.16.8 [id number] 1965 Unknown [id number] 2.16.8 [id number] 1964 Unknown [id number] 2.16.84 [id number] 1964 Unknown [id number] 2.16.84 0.1.771580.3.579.2.593 1964 Unknown [id number] 2.16.84 0.1.309966.3.579.2.593 1964 Unknown [id number] 2.16.84 0.1.841125.3.579.2.593 1964 Unknown [id number] 2.16.84 0.1.467169.3.579.2.593 1964 Unknown [id number] 2.16.84 0.1.712710.3.579.2.593 1964 Unknown [id number] 2.16.84 0.1.863889.3.579.2.593 1964 Unknown [id number] 2.16.84 0.1.816311.3.579.2.593 1964 Unknown [id number] 2.16.84 0.1.094903.3.579.2.593 1964 Unknown [id number] 2.16.84 0.1.589477.3.579.2.593 1964 Unknown [id number] 2.16.84 0.1.765457.3.579.2.593 1964 Unknown [id number] 2.16.84 0.1.873836.3.579.2.593 1964 Unknown [id number] 2.16.84 0.1.372408.3.579.2.593 1964 Unknown [id number] 2.16. [id number] 1960 Self-pay [id number] Self-pay [id number] Social History Date Type Detail Facility Sex Assigned At [facility] Other Start: 06-04-2022 Tobacco smoking status Never smoked tobacco (finding) [facility] Tobacco smoking status Never [facility] Tobacco smoking status IAIS Tobacco smoking consumption unknown [facility] Start: 1965 Sex assigned at Not on file [facility] Functional Status Date Assessment Result Facility 06-04-2022 Functional Status N/A [facility] History of Present illness Narrative 09-05-2024 NIRAV Coleman - 09/05/2024 10:00 AM EST Note Date & Type Note Facility 09-05-2024 History of Presen t illness Narrative Reason for Appointment: Patient ID: Ginny Ceja is a 58 y.o. female who presents for No chief complaint on file. Patient presents today for Annual Exam. MEDICATIONS No current outpatient medications ALLERGIES Not on File PROBLEMS Active Ambulatory Problems Diagnosis Date Noted No Active Ambulatory Problems Resolved Ambulatory Problems Diagnosis Date Noted No Resolved Ambulatory Problems No Additional Past Medical History HISTORY PAST MEDICAL HISTORY SOCIAL HISTORY No past medical history on file. Social History Tobacco Use Smoking status: Not on file Smokeless tobacco: Not on file Substance Use Topics Alcohol use: Not on file Drug use: Not on file FAMILY HISTORY No family history on file. SURGICAL HISTORY No past surgical history on file. REVIEW OF SYSTEMS Review of Systems: Review of Systems Constitutional: Negative. HENT: Negative. Eyes: Negative. Respiratory: Negative. Cardiovascular: Negative. Gastrointestinal: Negative. Genitourinary: Negative. Musculoskeletal: Negative. Skin: Negative. Neurological: Negative. All other systems reviewed and are negative. Hematological: Negative. Endocrine: Negative. Allergic/Immunologic: Negative. OBJECTIVE Objective: Physical Exam Constitutional: Appearance: Normal appearance. Genitourinary: Right Adnexa: not tender and no mass present. Left Adnexa: not tender and no mass present. No cervical discharge. Breasts: Breasts are soft. Right: Normal. Left: Normal. HENT: Head: Normocephalic. Nose: Nose normal. Mouth/Throat: Mouth: Mucous membranes are moist. Cardiovascular: Rate and Rhythm: Normal rate. Pulmonary: Effort: Pulmonary effort is normal. Abdominal: General: Bowel sounds are normal. Palpations: Abdomen is soft. Musculoskeletal: General: Normal range of motion. Cervical back: Normal range of motion. Neurological: General: No focal deficit present. Mental Status: She is alert. Skin: General: Skin is warm and dry. Psychiatric: Mood and Affect: Mood normal. Vitals and nursing note reviewed. Exam conducted with a planning lead present. Vitals: Estimated body mass index is 34.91 kg/m as calculated from the following: Height as of 08/26/22: 5' 5 . Weight as of 08/26/22: 209 lb 12.8 oz. BP: No LMP recorded. ASSESSMENT & PLAN No diagnosis found. Documented by Irena Graham LPN on behalf of: NIRAV Coleman documented in this encounter [facility] Evaluation note 06-03-2022 Note Date & Type [...] controlled in addition to as needed [facility] Other Evaluation + Plan note Note Date & Type Note Facility Evaluation + Plan note Future Appointments Appointment Date:09/03/2022 09:00:00 AM Scheduled Provider:Mic Cheema Location:[facility] Appointment Type:URO Office Visit Diagnostic Tests [facility]ending[facility]Vys[facility] Fish and Urine Cyto ([facility]) 06/04/22 [facility] Note Date & Type Note Facility Evaluation note Diagnosis Well woman exam with routine gynecological exam Routine gynecological examination Breast cancer screening by mammogram Postmenopausal state Asymptomatic postmenopausal status (age-related) (natural) documented in this encounter [facility] History general Narrative - Reported Note Date & Type Note Facility History general Narrative - Reported Type Medical History high blood pressure Medical History COVID 19 x 4 times Surgical History 3 c-sections Hospitalization History kidney stones [facility] Other Hospital course Narrative Note Date & Type Note Facility Hospital course Narrative No data available for this section [facility] Discharge instructions Note Date & Type Note Facility Hospital Discharge instructions No data available for this section [facility] Progress note Note Date & Type Note Facility Progress note No data available for this section [facility] Reason for visit Narrative Note Date & Type Note Facility Reason for visit Narrative Ref by Dr. Kalpana bueno for Post COVID -19 Condition [facility] Other Summary Purpose Family History No Family History Records FoundNo Family History Records FoundNo Family History Records FoundNo Family History Records Found Advance Directives No Advanced Directives Records FoundNo Advanced Directives Records FoundNo Advanced Directives Records FoundNo Advanced Directives Records Found Additional Source Comments INFORMATION SOURCE (unrecogn ized section and content) DATE CREATED AUTHOR 03/30/2018 [facility] DATE CREATED AUTHOR AUTHOR'S ORGANIZ ATION 07/09/2022 [facility] DATE CREATED AUTHOR AUTHOR'S ORGANIZ ATION 09/05/2022 [facility] DATE CREATED AUTHOR AUTHOR'S ORGANIZ ATION 08/23/2024 [facility] Care Team (unrecognized sect ion and content) 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 [facility] [employer] [facility]. provides no warranty or guarantee of the accuracy or completeness of information in this document.
== END 2024-09-05 20:41 | disposition home or self-care (01) ==
LOC: LAB 20:40
PROVIDERS: PCP Family Medicine; Visit Provider Physician Assistant
DX: Z01.419 Encounter for gynecological examination (general) (routine) without abnormal findings (principal)
CPT/HCPCS: 87624; 88175